=== PATIENT | female | born 1945 | race Asian ===

== ENCOUNTER 2016-08-18 08:46 | Outpatient (CLI) | payer MEDICARE ==
--- NOTE | 2016-08-21 16:15 | Mammography Report ---
DIGITAL SCREENING MAMMOGRAM: 08/18/2016 CLINICAL INDICATION: A 71-year-old nulliparous patient with history of benign right breast biopsy, fo r screening. COMPARISON: 06/2013, 05/2012, 03/2011, 01/2010, 12/2008, 05/2008, 11/2007, 11/2006. TECHNIQUE: Routine CC and MLO projections were obtained of the breasts. FINDINGS: The breasts again demonstrate heterogeneously dense fibroglandular parenchyma bilaterally. Postbiopsy changes in the right upper central breast are stable, with coarse calcifications present. No suspicious masses, clustered microcalcifications, or regions of architectural distortion are iden tified. IMPRESSION: BENIGN FINDINGS. RECOMMENDATION: ROUTINE ANNUAL SCREENING UNLESS OTHERWISE CLINICALLY INDICATED. BIRADS CATEGORY 2-BENIGN FINDINGS. STANDARD QUALIFYING STATEMENTS 1. This examination was reviewed with the aid of Computer-Aided Detection (CAD). 2. A negative or benign imaging report should not delay biopsy if clinically suspicious findings are present. Consider surgical consultation if warranted. More than 5% of cancers are not identified by i maging. 3. Dense breasts may obscure an underlying neoplasm. JOB #: [id number] EXT JOB #:[id number]
== END 2016-08-18 08:47 | disposition home or self-care (01) ==
LOC: DI 08:46
PROVIDERS: ATTEND Family Medicine
DX: Z12.31 Encounter for screening mammogram for malignant neoplasm of breast (principal)
CPT/HCPCS: 77067

== ENCOUNTER 2018-03-14 17:24 | Observation (INO) | payer MEDICARE ==
[2018-03-14 17:57] LABS: MEAN CORPUSCULAR HEMOGLOBIN 29.1 pg (27.0-31.0); MEAN CORPUSCULAR HGB CONC 32.5 g/dL (32.0-36.0); MEAN CORPUSCULAR VOLUME 89.7 fL (81.0-99.0); MEAN PLATELET VOLUME 7.7 fL (7.9-10.8); RED BLOOD COUNT 4.46 10^6/uL (4.20-5.40); RED CELL DISTRIBUTION WIDTH 12.7 % (12.0-15.0); WHITE BLOOD COUNT 7.3 x10^3/uL (4.8-10.8)
--- NOTE | 2018-03-14 18:13 | ED Physician Documentation ---
PD HPI ABD PAIN - Stated complaint Stated Complaint: BLOOD IN STOOL/VOM - Chief complaint Chief Complaint: Abd Pain - History obtained from History obtained from: Patient, Family () - History of Present Illness Timing - onset: Today (72-year-old woman with benign past medical history. States her last colonoscopy was about 4 years ago with finding of diverticula. Today she developed nausea and bloody diarrhea. Her stomach feels upset but not painful per se. She has not traveled recently. She has not been on antibiotics recently. No sick contacts recently.) Review of Systems Ten Systems: 10 systems reviewed and negative Constitutional: denies: Fever, Chills GI: reports: Nausea, Diarrhea, Bloody / black stool. denies: Abdominal Pain, Vomiting PD PAST MEDICAL HISTORY - Present Medications Home Medications: Ambulatory Orders Medication Instructions Recorded Confirmed No Known Home Medications 03/14/18 03/14/18 - Allergies Allergies/Adverse Reactions: Allergies Allergy/AdvReac Type Severity Reaction Status Date / Time hydrochlorothiazide Allergy Rash Verified 03/14/18 17:36 PD ED PE NORMAL - Vitals Vital signs reviewed: Yes - General General: Alert and oriented X 3, No acute distress - HEENT HEENT: PERRL, EOMI - Neck Neck: Supple, no meningeal sign, No bony TTP - Cardiac Cardiac: RRR, No murmur - Respiratory Respiratory: No respiratory distress, Clear bilaterally - Abdomen Abdomen: Normal bowel sounds, Soft, Non tender - Back Back: No CVA TTP, No spinal TTP - Derm Derm: No rash - Extremities Extremities: No edema, No calf tenderness / cord - Neuro Neuro: Alert and oriented X 3, Normal speech - Psych Psych: Normal mood, Normal affect Results - Vitals Vitals: Vital Signs - 24 hr 03/14/18 03/14/18 03/14/18 17:33 18:33 20:36 Temperature 36.6 C Heart Rate 100 87 84 Respiratory 18 16 16 Rate Blood Pressure 137/80 H 163/95 H 155/89 H O2 Saturation 100 100 97 Oxygen O2 Source Room air - Labs Labs: Microbiology 03/14/18 19:03 Clostridium difficile (PCR) - Final Stool 03/14/18 19:03 Campylobacter Antigen Assay - Final Stool Laboratory Tests 03/14/18 03/14/18 03/14/18 17:48 17:48 17:48 WBC 7.3 RBC 4.46 Hgb 13.0 Hct 40.0 MCV 89.7 MCH 29.1 MCHC 32.5 RDW 12.7 Plt Count 281 MPV 7.7 L PT INR APTT 26.5 Sodium 139 Potassium 3.4 L Chloride 102 Carbon Dioxide 28 Anion Gap 9.0 BUN 20 Creatinine 0.8 Estimated GFR (MDRD) 71 L Glucose 131 H Calcium 8.7 Total Bilirubin 0.8 AST 27 ALT 21 Alkaline Phosphatase 61 Total Protein 6.6 L Albumin 3.9 Globulin 2.7 Albumin/Globulin Ratio 1.4 Lipase 42 Blood Type Blood Type Recheck Antibody Screen Crossmatch IS Only 03/14/18 03/14/18 03/14/18 17:48 17:48 18:08 WBC RBC Hgb Hct MCV MCH MCHC RDW Plt Count MPV PT 11.7 INR 1.0 APTT Sodium Potassium Chloride Carbon Dioxide Anion Gap BUN Creatinine Estimated GFR (MDRD) Glucose Calcium Total Bilirubin AST ALT Alkaline Phosphatase Total Protein Albumin Globulin Albumin/Globulin Ratio Lipase Blood Type B POSITIVE Blood Type Recheck B POSITIVE Antibody Screen NEGATIVE Crossmatch IS Only 03/14/18 03/14/18 18:08 20:54 WBC RBC Hgb 11.5 L Hct 33.5 L MCV MCH MCHC RDW Plt Count MPV PT INR APTT Sodium Potassium Chloride Carbon Dioxide Anion Gap BUN Creatinine Estimated GFR (MDRD) Glucose Calcium Total Bilirubin AST ALT Alkaline Phosphatase Total Protein Albumin Globulin Albumin/Globulin Ratio Lipase Blood Type Cancelled Blood Type Recheck Antibody Screen Cancelled Crossmatch IS Only See Detail - Rads (name of study) CT A/P Radiology: EMP read contemporaneously (Diverticula without colitis or other abnormality) PD MEDICAL DECISION MAKING - ED course ED course: 72-year-old woman with lower GI bleed today. Most likely colitis based on the history and therefore a CT was done but not showing evidence of same. Repeat H&H after couple of hours showed a not insignificant drop from 13 hemoglobin to 11.5. Case discussed by phone with the surgeon, Dr. Andrea Sidhu who Recommended observation on the hospitalist service for serial H&H's and colonoscopy if needed, call the hospitalist for admission at 9:16 PM. Departure - Departure Disposition: ED Place in Observation Clinical Impression: Lower GI bleed Condition: Stable Discharge Date/Time: 03/14/18 22:00
[2018-03-14 18:23] LABS: ALBUMIN 3.9 g/dL (3.2-5.5); ALBUMIN/GLOBULIN RATIO 1.4 (1.0-2.2); BILIRUBIN,TOTAL 0.8 mg/dL (0.2-1.0); CALCIUM 8.7 mg/dL (8.5-10.3); CREATININE 0.8 mg/dL (0.4-1.0); TOTAL PROTEIN 6.6 g/dL (6.7-8.2)
[2018-03-14 18:39] LABS: PT - PROTHROMBIN TIME 11.7 secs (9.9-12.6)
[2018-03-14] MEDS ORDERED: IOVERSOL 320 100 ML VIAL IVP ONE ×2 (20:03→20:38)
[2018-03-14 21:00] LABS: HGB - HEMOGLOBIN 11.5 g/dL (12.0-16.0)
--- NOTE | 2018-03-14 21:00 | CT Report ---
Reason: IV only, low abd pain and hematochezia Procedure Date: 03/14/2018 Accession Number: [id number] / [id number] Procedure: CT - Abdomen/Pelvis W/ CPT Code: FULL RESULT: EXAM: CT ABDOMEN AND PELVIS EXAM DATE: 03/14/2018 08:36 PM. CLINICAL HISTORY: Low abdomen pain and hematochezia. COMPARISONS: None. TECHNIQUE: Routine helical CT imaging was performed through the abdomen and pelvis. IV contrast: 90 cc of Optiray 320. Enteric contrast: No. Reconstructions: Coronal and sagittal. In accordance with CT protocol optimization, one or more of the following dose reduction techniques were utilized for this exam: automated exposure control, adjustment of mA and/or KV based on patient size, or use of iterative reconstructive technique. FINDINGS: Lung Bases: Unremarkable. Liver: Several subcentimeter low densities noted, likely cysts. Gallbladder/Bile Ducts: Unremarkable. Spleen: Normal. Pancreas: Normal. Adrenal Glands: Normal. Kidneys: 1.7 cm medial left renal cyst, otherwise unremarkable. Peritoneal Cavity/Bowel: Diverticulosis. No free fluid, free air or adenopathy. No masses or acute inflammatory process. The appendix is well visualized and normal. Pelvic Organs: Normal. The bladder and visualized pelvic organs are within normal limits. Vasculature: No aneurysms or other significant abnormality. Bones: Mild S-shaped scoliosis. Multilevel degenerative disk disease. Other: None. IMPRESSION: 1. Diverticulosis without diverticulitis or other acute bowel abnormalities. 2. Mild S-shaped scoliosis with multilevel degenerative disk disease. RADIA
[2018-03-14] MEDS ORDERED: ZOLPIDEM 5 MG TABLET PO PRN (21:41)
[2018-03-14] MEDS ORDERED: ACETAMINOPHEN 325 MG TABLET PO PRN (21:41)
[2018-03-14] MEDS ORDERED: ONDANSETRON 4 MG/2 ML VIAL IVP PRN (21:41)
[2018-03-14] MEDS ORDERED: MORPHINE 2 MG/ML CARPUJECT IVP PRN (21:41)
[2018-03-14] MEDS ORDERED: SODIUM CHLORIDE FLUSH 0.9% 10 ML SYRINGE IVP PRN (21:41)
[2018-03-14] MEDS ORDERED: PROCHLORPERAZINE 10 MG/2 ML VIAL IVP PRN (21:41)
--- NOTE | 2018-03-14 21:53 | HISTORY & PHYSICAL EXAMINATION ---
Chief Complaint - Chief Complaint Chief Complaint: Bright red blood per rectum History of Present Illness - Admitted From Admitted From:: Emergency department - History Obtained From Records Reviewed: Emergency department History obtained from: Patient and Dr. Monte Exam Limitations: None - History of Present Illness HPI Comment/Other: Patient is a very pleasant 72-year-old female of Hebrew origin living in [facility] for the last 4 years who presents with a chief complaint of bright red blood per rectum that she noticed earlier this morning. She had a significant amounts that was enough to color the water of the toilet bowl after a painless bowel movement. This episode repeated a few times throughout the day and this was associated with one episode of emesis without blood. She denies any previous history of GI bleeding and recalls now that her last colonoscopy was probably about 10 years ago, not the 4 years that she originally told the ED physician. She has no known history of colon disease, is not on an anticoagulant, has no known history of hemorrhoids, denies heavy alcohol use, chronic NSAID use, or other risk factors for GI bleeding. There is no known family history of colon cancer. With the exception of the bleeding and the single episode of emesis she feels fine. She denies any lightheadedness, syncope, chest pain, shortness of breath, or other sequelae of bleeding. She denies any abdominal pain. She has had decreased oral intake today and has been feeling more thirsty for the last several hours. In the emergency room she did have 2 sets of hemoglobin and hematocrit with the second set showing about a 1 point drop in her hemoglobin. General surgery was notified about this and they did recommend keeping the patient overnight with serial hemoglobin and hematocrit and depending on how she does overnight they may take her for a colonoscopy tomorrow morning. The hospitalist service was requested to admit the patient. History - Past Medical History Cardiovascular: reports: Hypertension (She states that years ago she used to be on medications for blood pressure but she has not been on blood pressure me dications for a few years now) Respiratory: reports: None Neuro: reports: None Endocrine/Autoimmune: reports: None GI: reports: GERD LAYOUT MAN: reports: None : reports: None HEENT: reports: None Psych: reports: None Musculoskeletal: reports: None Derm: reports: None MRSA Hx?: No - Past Surgical History HEENT: reports: Tonsil/Adenoidectomy - Family & Social History Family History: Father: BEL Living arrangement: At home Living Situation: With spouse/s.o. Social History Notes: Patient is originally from [place] having her [place] 40 years ago. They used to live in the [facility] but have been living on the [place] for the last 10 years since her retired. 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 - Substance History Use: Uses substance without health or social issues: NONE - POLST Patient has POLST: No POLST Status: Full Code Meds/Allgy - Home Medications Home Medications: Ambulatory Orders Medication Instructions Recorded Confirmed No Known Home Medications 03/14/18 03/14/18 - Allergies Allergies/Adverse Reactions: Allergies Allergy/AdvReac Type Severity Reaction Status Date / Time hydrochlorothiazide Allergy Rash Verified 03/14/18 17:36 Review of Systems - Constitutional Constitutional: denies: Fatigue, Weakness - Cardiovascular Cariovascular: denies: Irregular heart rate, Chest pain - Respiratory Respiratory: denies: SOB at rest, SOB with exertion - Gastrointestinal Gastrointestinal: reports: Change in bowel habits, Rectal bleeding, Nausea, Vomiting. denies: Abdominal pain, Constipation, Diarrhea, Black stools, Bloody stools, Bile emesis, Coffee grounds emesis, Reflux/heartburn - All Other Systems All Other Systems: reports: Reviewed and negative Prior Level of Functionality: Fully independent Exam - Vital Signs Reviewed Vital Signs: Yes Vital Signs: Vital Signs x48h Temp Pulse Resp BP Pulse Ox 03/14/18 20:36 84 16 155/89 H 97 03/14/18 18:33 87 16 163/95 H 100 03/14/18 17:33 36.6 C 100 18 137/80 H 100 - Physical Exam General Appearance: positive: No acute distress Eyes Bilateral: positive: Normal inspection ENT: positive: ENT inspection nml Neck: positive: Nml inspection Respiratory: positive: Chest non-tender Cardiovascular: positive: Regular rate & rhythm, No murmur, No gallop, Irregularly irregular Abdomen: positive: Non-tender, No organomegaly, Nml bowel sounds, No distention Skin: positive: Color nml, Warm. negative: Pallor Extremities: positive: Non-tender, Nml appearance, No pedal edema Neurologic/Psychiatric: positive: Oriented x3, CN's nml (2-12), Motor nml, Sensation nml Conclusion/Plan - Problem List (1) Lower GI bleed Conclusion/Plan: Patient is having an acute lower GI bleed with some changes to her hemoglobin and hematocrits but otherwise no changes to hemodynamics. Patient will be placed in observation overnight with every 6 hemoglobin and hematocrit and depending on the results of this as well as her overall clinical progression, she may need a colonoscopy tomorrow morning. She will be kept n.p.o. at midnight and general surgery will see her in the morning. - Lab Results Lab results reviewed: Yes Fish Bones: 03/14/18 20:54 03/14/18 17:48 - Diagnostic Imaging Results Diagnostic Imaging Results: positive: Final report reviewed Core Measures - Anticipated LOS I expect patient to be DC'd or transferred within 96 hours.: Yes - DVT/VTE - Prophylaxis VTE/DVT Device ordered at admit?: Yes
[2018-03-14 22:01] LABS: HGB - HEMOGLOBIN 12.4 g/dL (12.0-16.0)
[2018-03-14] MEDS: SODIUM CHLORIDE 0.9% 1,000 ML IV SCH (23:40)
[2018-03-14] MEDS: SODIUM CHLORIDE FLUSH 0.9% 10 ML SYRINGE IVP SCH (23:40)
[2018-03-15 04:59] LABS: HGB - HEMOGLOBIN 11.1 g/dL (12.0-16.0)
[2018-03-15 05:03] LABS: CALCIUM 8.6 mg/dL (8.5-10.3); CREATININE 0.7 mg/dL (0.4-1.0)
[2018-03-15] MEDS: PANTOPRAZOLE 40 MG VIAL IVP SCH ×2 (06:38→15:41)
[2018-03-15] MEDS: SODIUM CHLORIDE FLUSH 0.9% 10 ML SYRINGE IVP SCH ×2 (07:26→15:51)
[2018-03-15] MEDS: POLYETHYLENE GLYCOL 3350 17 GM PACKET PO SCH (07:29)
--- NOTE | 2018-03-15 07:44 | CONSULTATION NOTE ---
Referring Provider Name of Referring Provider:: Dr. Garcia Consult Date: 03/15/18 Chief Complaint - Chief Complaint Chief Complaint: rectal bleeding History of Present Illness - Admitted From Admitted From:: ER - History Obtained From Records Reviewed: yes History obtained from: pt Exam Limitations: none - History of Present Illness HPI Comment/Other: 72 yo female in her usual state of health until yesterday morning when she developed what she described as several episodes of bloody diarrhea, followed by BRBPR, a total of 4 large bloody stools associated with one episode of nonbloody nausea and vomiting, but no abd pain, fever, chills, melena, hematochezia, previous similar episodes, unusual oral intake, others in household with similar sx. No dizziness or syncope. No hx PUD, heartburn, dysphagia, recent unexplained wt loss. Only prior colonoscopy was 10 yrs ago reportedly showing diverticulosis. Normally she moves her bowels daily. She reports a FH colon cancer in her mother who was diagnosed at age 96 yrs. Evaluation in the ER included an abd/pelvic CT showing diverticulosis coli and no other significant abnormalities. Since admission last night her vital signs have been stable and she has passed on small blood clot per rectum per nursing. No tobacco, less than one alcoholic beverage per day, no rec drugs. History - Past Medical History Cardiovascular: reports: Hypertension Respiratory: reports: None Neuro: reports: None Endocrine/Autoimmune: reports: None WELL DIGGER: reports: None : reports: None HEENT: reports: None Psych: reports: None Musculoskeletal: reports: None Derm: reports: None MRSA Hx?: No - Past Surgical History HEENT: reports: Tonsil/Adenoidectomy - Family & Social History Family History: Mother: Cancer (colon cancer age 96), Father: CAD Living arrangement: At home Living Situation: With spouse/s.o. Social History Notes: Patient is originally from [facility] having her Malaysian 40 years ago. They used to live in the [facility] but have been living on the [place] for the last 10 years since her retired. 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 - Substance History Use: Uses substance without health or social issues: NONE - POLST Patient has POLST: No POLST Status: Full Code Meds/Allgy - Home Medications Home Medications: Ambulatory Orders Medication Instructions Recorded Confirmed No Known Home Medications 03/14/18 03/14/18 - Allergies Allergies/Adverse Reactions: Allergies Allergy/AdvReac Type Severity Reaction Status Date / Time hydrochlorothiazide Allergy Rash Verified 03/14/18 17:36 Review of Systems - Gastrointestinal Gastrointestinal: reports: Diarrhea, Change in bowel habits, Rectal bleeding, Bloody stools, Nausea, Vomiting, Poor appetite. denies: Abdominal pain, Constipation, Black stools, Mello blood emesis, Coffee grounds emesis, Reflux/heartburn - Hematologic/Lymphatic Hematologic/Lymphatic: denies: Anemia, Bruising, Blood clots, Bleeding tendencies - All Other Systems All Other Systems: reports: Reviewed and negative Exam - Vital Signs Reviewed Vital Signs: Yes Vital Signs: Vital Signs x48h Temp Pulse Resp BP Pulse Ox 03/15/18 07:33 36.5 C 80 16 152/82 H 98 03/15/18 05:25 36.7 C 76 16 141/83 H 98 - Physical Exam General Appearance: positive: No acute distress, Alert Eyes Bilateral: positive: Normal inspection ENT: positive: ENT inspection nml, Pharynx nml, No signs of dehydration Neck: positive: Nml inspection, Thyroid nml, No JVD, Trachea midline. negative: Thyromegaly, Lymphadenopathy (R), Lymphadenopathy (L) Respiratory: positive: Chest non-tender, No respiratory distress, Breath sounds nml. negative: Wheezes, Rales, Rhonchi Cardiovascular: positive: Regular rate & rhythm, No murmur, No gallop Abdomen: positive: Non-tender, No organomegaly, No distention. negative: Guarding, Rebound, Hepatomegaly, Splenomegaly, Mass Skin: positive: Color nml. negative: No rash, Warm, Dry, Cyanosis Extremities: positive: Non-tender. negative: Pedal edema, Calf tenderness Neurologic/Psychiatric: positive: Oriented x3 Conclusion/Plan - Diagnosis Diagnosis: lower gi bleeding; clinically resolving; possible component of diarrhea; ddx includes tics, angiodysplasia, acute colitis, IBD, doubt CRC; doubt UGI source. Hemodynamically stable at present. - Plan Plan: Continue observation today; clear liquid diet and bowel prep for colonoscopy tomorrow. PAR conference with pt and consent obtained. Dr. Arita will perform the procedure. - Lab Results Lab results reviewed: Yes Fish Bones: 03/15/18 04:10 03/15/18 04:10 Other Lab Results: Stool for C. diff and campylobacter neg. - Diagnostic Imaging Results Diagnostic Imaging Results: positive: Final report reviewed
[2018-03-15 10:04] LABS: HGB - HEMOGLOBIN 11.2 g/dL (12.0-16.0)
--- NOTE | 2018-03-15 10:56 | PROVIDER PROGRESS NOTE ---
Subjective - Prog Note Date Prog Note Date: 03/15/18 - Subjective Pt reports feeling: No change Subjective: pt report she still has small bright red blood stool at today morning. She denies abdominal pain, nausea, vomiting, or diarrhea. She also denies lig htheaded, chest pain, shortness of breath. pt was seen by Dr. Andrea Sidhu, and will schedule to have colonoscopy on tomorrow. Current Medications - Current Medications Current Medications: Active Medications Acetaminophen (Tylenol) 650 mg PO Q4HR PRN PRN Reason: Pain 1 to 4 Sodium Chloride (Normal Saline 0.9%) 1,000 mls @ 75 mls/hr IV .[id number] [facility] Last Admin: 03/14/18 23:40 Dose: 75 mls/hr Morphine Sulfate (Morphine (Carpuject)) 2 mg IVP Q2HR PRN PRN Reason: Pain 8 to 10 Ondansetron HCl (Zofran Inj) 4 mg IVP Q6HR PRN PRN Reason: Nausea / Vomiting Pantoprazole Sodium (Protonix) 40 mg IVP BIDAC [facility] Last Admin: 03/15/18 06:38 Dose: 40 mg Polyethylene Glycol (Miralax) 17 gm PO DAILY [facility] Last Admin: 03/15/18 07:29 Dose: Not Given Prochlorperazine Edisylate (Compazine Inj) 10 mg IVP Q6HR PRN PRN Reason: Nausea / Vomiting Sodium Chloride (Normal Saline Flush 0.9%) 10 ml IVP PRN PRN PRN Reason: NEEDED PER PROVIDER ORDERS Last Admin: 03/15/18 06:37 Dose: 10 ml Sodium Chloride (Normal Saline Flush 0.9%) 10 ml IVP 0100,0900,1700 [facility] Last Admin: 03/15/18 07:26 Dose: Not Given Sodium Sulfate/Potass Sulf/Mag Sulf (Suprep Bowel Prep Kit) 177 ml PO 1800,0500 [facility] Stop: 03/16/18 05:01 Zolpidem Tartrate (Ambien) 5 mg PO QPM PRN PRN Reason: Insomnia Aspirin 81 mg PO DAILY 03/15/18 Garlic 500 mg PO DAILY 03/15/18 Multivitamin [Theragran] 1 each PO DAILY 03/15/18 Objective - Vital Signs/Intake & Output Reviewed Vital Signs: Yes Vital Signs: Vital Signs x48h Temp Pulse Resp BP Pulse Ox 03/15/18 07:33 36.5 C 80 16 152/82 H 98 03/15/18 05:25 36.7 C 76 16 141/83 H 98 Intake & Output: Intake & Output 03/12/18 03/13/18 03/14/18 03/15/18 23:59 23:59 23:59 23:59 Intake Total 360 Balance 360 - Objective General Appearance: positive: No acute distress, Alert. negative: Lethargic Eyes Bilateral: positive: Normal inspection, PERRL, No lid inflammation, Conjunctivae nml ENT: positive: ENT inspection nml, Pharynx nml, No signs of dehydration. negative: Purulent nasal drainage, Pharyngeal erythema, Oral lesions, Dry mucous membranes Neck: positive: Nml inspection, Thyroid nml, No JVD, Trachea midline. negative: Thyromegaly, Lymphadenopathy (R), Lymphadenopathy (L), Stiff neck, Swel ling/bruising, Tracheal deviation Respiratory: positive: Chest non-tender, No respiratory distress, Breath sounds nml. negative: Wheezes, Rales, Rhonchi Cardiovascular: positive: Regular rate & rhythm, No murmur, No gallop. negative: Irregularly irregular, Extrasystoles, Tachycardia, Bradycardia, JVD present, Systolic murmur, Diastolic murmur Peripheral Pulses: 2+ Radial (R), 2+ Radial (L), 2+ Dorsalis pedis (R), 2+ Ian salis pedis (L) Abdomen: positive: Non-tender, No organomegaly, Nml bowel sounds, No distention. negative: Tenderness, Guarding, Rebound Back: positive: Nml inspection. negative: CVA tenderness (R), CVA tenderness (L) Skin: positive: Color nml, No rash, Warm, Dry. negative: Cyanosis, Diaphoresis, Pallor Extremities: positive: Non-tender, Full ROM, Nml appearance. negative: Calf tenderness, Joint swelling, Bozena's sign/cords Neurologic/Psychiatric: positive: Oriented x3, Motor nml, Sensation nml, Mood/affect nml. negative: Weakness, Sensory loss, Facial droop, Slurred/abnml speech, Depressed mood/affect - Lab Results Fish Bones: 03/15/18 09:43 03/15/18 04:10 Other Labs: Lab Results x24hrs 03/15/18 03/15/18 03/15/18 Range/Units 09:43 04:10 04:10 WBC (4.8-10.8) x10^3/uL RBC (4.20-5.40) 10^6/uL Hgb 11.2 L 11.1 L (12.0-16.0) g/dL Hct 32.7 L 33.4 L (37.0-47.0) % MCV (81.0-99.0) fL MCH (27.0-31.0) pg MCHC (32.0-36.0) g/dL RDW (12.0-15.0) % Plt Count (130-450) 10^3/uL MPV (7.9-10.8) fL PT (9.9-12.6) secs INR (0.8-1.2) APTT (24.9-33.3) secs Sodium 142 (135-145) mmol/L Potassium 3.7 (3.5-5.0) mmol/L Chloride 103 (101-111) mmol/L Carbon Dioxide 28 (21-32) mmol/L Anion Gap 11.0 (6-13) BUN 18 (6-20) mg/dL Creatinine 0.7 (0.4-1.0) mg/dL Estimated GFR (MDRD) 82 L (>89) Glucose 105 H (70-100) mg/dL Calcium 8.6 (8.5-10.3) mg/dL Total Bilirubin (0.2-1.0) mg/dL AST (10-42) IU/L ALT (10-60) IU/L Alkaline Phosphatase (42-121) IU/L Total Protein (6.7-8.2) g/dL Albumin (3.2-5.5) g/dL Globulin (2.1-4.2) g/dL Albumin/Globulin Ratio (1.0-2.2) Lipase (22-51) U/L Blood Type Blood Type Recheck Antibody Screen Crossmatch IS Only 03/14/18 03/14/18 03/14/18 Range/Units 21:58 20:54 18:08 WBC (4.8-10.8) x10^3/uL RBC (4.20-5.40) 10^6/uL Hgb 12.4 11.5 L (12.0-16.0) g/dL Hct 37.5 33.5 L (37.0-47.0) % MCV (81.0-99.0) fL MCH (27.0-31.0) pg MCHC (32.0-36.0) g/dL RDW (12.0-15.0) % Plt Count (130-450) 10^3/uL MPV (7.9-10.8) fL PT (9.9-12.6) secs INR (0.8-1.2) APTT (24.9-33.3) secs Sodium (135-145) mmol/L Potassium (3.5-5.0) mmol/L Chloride (101-111) mmol/L Carbon Dioxide (21-32) mmol/L Anion Gap (6-13) BUN (6-20) mg/dL Creatinine (0.4-1.0) mg/dL Estimated GFR (MDRD) (>89) Glucose (70-100) mg/dL Calcium (8.5-10.3) mg/dL Total Bilirubin (0.2-1.0) mg/dL AST (10-42) IU/L ALT (10-60) IU/L Alkaline Phosphatase (42-121) IU/L Total Protein (6.7-8.2) g/dL Albumin (3.2-5.5) g/dL Globulin (2.1-4.2) g/dL Albumin/Globulin Ratio (1.0-2.2) Lipase (22-51) U/L Blood Type Cancelled Blood Type Recheck Antibody Screen Cancelled Crossmatch IS Only See Detail 03/14/18 03/14/18 03/14/18 Range/Units 18:08 17:48 17:48 WBC (4.8-10.8) x10^3/uL RBC (4.20-5.40) 10^6/uL Hgb (12.0-16.0) g/dL Hct (37.0-47.0) % MCV (81.0-99.0) fL MCH (27.0-31.0) pg MCHC (32.0-36.0) g/dL RDW (12.0-15.0) % Plt Count (130-450) 10^3/uL MPV (7.9-10.8) fL PT 11.7 (9.9-12.6) secs INR 1.0 (0.8-1.2) APTT (24.9-33.3) secs Sodium (135-145) mmol/L Potassium (3.5-5.0) mmol/L Chloride (101-111) mmol/L Carbon Dioxide (21-32) mmol/L Anion Gap (6-13) BUN (6-20) mg/dL Creatinine (0.4-1.0) mg/dL Estimated GFR (MDRD) (>89) Glucose (70-100) mg/dL Calcium (8.5-10.3) mg/dL Total Bilirubin (0.2-1.0) mg/dL AST (10-42) IU/L ALT (10-60) IU/L Alkaline Phosphatase (42-121) IU/L Total Protein (6.7-8.2) g/dL Albumin (3.2-5.5) g/dL Globulin (2.1-4.2) g/dL Albumin/Globulin Ratio (1.0-2.2) Lipase (22-51) U/L Blood Type B POSITIVE Blood Type Recheck B POSITIVE Antibody Screen NEGATIVE Crossmatch IS Only 03/14/18 03/14/18 03/14/18 Range/Units 17:48 17:48 17:48 WBC 7.3 (4.8-10.8) x10^3/uL RBC 4.46 (4.20-5.40) 10^6/uL Hgb 13.0 (12.0-16.0) g/dL Hct 40.0 (37.0-47.0) % MCV 89.7 (81.0-99.0) fL MCH 29.1 (27.0-31.0) pg MCHC 32.5 (32.0-36.0) g/dL RDW 12.7 (12.0-15.0) % Plt Count 281 (130-450) 10^3/uL MPV 7.7 L (7.9-10.8) fL PT (9.9-12.6) secs INR (0.8-1.2) APTT 26.5 (24.9-33.3) secs Sodium 139 (135-145) mmol/L Potassium 3.4 L (3.5-5.0) mmol/L Chloride 102 (101-111) mmol/L Carbon Dioxide 28 (21-32) mmol/L Anion Gap 9.0 (6-13) BUN 20 (6-20) mg/dL Creatinine 0.8 (0.4-1.0) mg/dL Estimated GFR (MDRD) 71 L (>89) Glucose 131 H (70-100) mg/dL Calcium 8.7 (8.5-10.3) mg/dL Total Bilirubin 0.8 (0.2-1.0) mg/dL AST 27 (10-42) IU/L ALT 21 (10-60) IU/L Alkaline Phosphatase 61 (42-121) IU/L Total Protein 6.6 L (6.7-8.2) g/dL Albumin 3.9 (3.2-5.5) g/dL Globulin 2.7 (2.1-4.2) g/dL Albumin/Globulin Ratio 1.4 (1.0-2.2) Lipase 42 (22-51) U/L Blood Type Blood Type Recheck Antibody Screen Crossmatch IS Only ABX Reporting Has patient been on IV antibiotics over the past 48 hours?: No Sepsis Event Note (H) - Evaluation Current Stage of Sepsis: Ruled out Assessment/Plan - Problem List (1) Lower GI bleed Impression: pt still has small lower GI bleed, check H&H closely monitor consult with GI surgeon, bowel preparing, pt will have colonoscopy on tomorrow continue Protonix IV vital monitor
[2018-03-15] MEDS: SODIUM CHLORIDE 0.9% 1,000 ML IV SCH ×2 (11:44→23:49)
[2018-03-15] MEDS: SODIUM/POTASSIUM/MAG SULFATES 354 ML PREP KIT PO SCH (17:53)
[2018-03-15 19:04] LABS: HGB - HEMOGLOBIN 11.7 g/dL (12.0-16.0)
--- NOTE | 2018-03-15 22:51 | PROVIDER PROGRESS NOTE ---
Subjective - General Admit Date: 03/14/18 Procedure Date: 03/16/18 Post Op Days: 1 Procedure Performed: Not yet - Review of Systems Wound/Incisions: positive: Other (None.) General: positive: No symptoms HEENT: positive: No symptoms Pulmonary: positive: No symptoms Cardiovascular: positive: No symptoms Gastrointestinal: positive: No symptoms Genitourinary: positive: No symptoms Musculoskeletal: positive: No symptoms Skin: positive: No symptoms Psychiatric: positive: No symptoms All Other Systems: positive: Reviewed and negative Objective - Patient Data Reviewed Vital Signs: Yes Vital Signs: Vital Signs x48h Temp Pulse Resp BP Pulse Ox 03/15/18 20:11 36.6 C 82 18 142/83 H 99 03/15/18 16:00 36.6 C 78 18 142/73 H 99 Weight: Weight 03/13/18 03/14/18 03/15/18 23:59 23:59 23:59 Weight (kg) 46.5 kg Intake & Output: Intake and Output Totals x24h 03/13/18 03/14/18 03/15/18 23:59 23:59 23:59 Intake Total 3474 Output Total 800 Balance 2674 - Lab Results Lab Results: 03/15/18 18:35 03/15/18 04:10 Other Lab Results: Lab Results x24hrs 03/15/18 03/15/18 03/15/18 Range/Units 18:35 09:43 04:10 Hgb 11.7 L 11.2 L (12.0-16.0) g/dL Hct 35.5 L 32.7 L (37.0-47.0) % Sodium 142 (135-145) mmol/L Potassium 3.7 (3.5-5.0) mmol/L Chloride 103 (101-111) mmol/L Carbon Dioxide 28 (21-32) mmol/L Anion Gap 11.0 (6-13) BUN 18 (6-20) mg/dL Creatinine 0.7 (0.4-1.0) mg/dL Estimated GFR (MDRD) 82 L (>89) Glucose 105 H (70-100) mg/dL Calcium 8.6 (8.5-10.3) mg/dL 03/15/18 Range/Units 04:10 Hgb 11.1 L (12.0-16.0) g/dL Hct 33.4 L (37.0-47.0) % Sodium (135-145) mmol/L Potassium (3.5-5.0) mmol/L Chloride (101-111) mmol/L Carbon Dioxide (21-32) mmol/L Anion Gap (6-13) BUN (6-20) mg/dL Creatinine (0.4-1.0) mg/dL Estimated GFR (MDRD) (>89) Glucose (70-100) mg/dL Calcium (8.5-10.3) mg/dL - Current Medications Current Medications: Current Medications Generic Name Dose Route Start Last Admin Trade Name Freq PRN Reason Stop Dose Admin Sodium Chloride 1,000 mls @ 75 mls/hr 03/14/18 22:00 03/15/18 11:44 Normal Saline 0.9% IV 75 mls/hr .[id number] [facility] Administration Pantoprazole Sodium 40 mg 03/15/18 07:00 03/15/18 15:41 Protonix IVP 40 mg BIDAC [facility] Administration Polyethylene Glycol 17 gm 03/15/18 09:00 03/15/18 07:29 Miralax PO Not Given DAILY [facility] Sodium Chloride 10 ml 03/14/18 21:41 03/15/18 06:37 Normal Saline Flush 0.9% IVP 10 ml PRN PRN Administration NEEDED PER PROVIDER ORDERS Sodium Chloride 10 ml 03/15/18 01:00 03/15/18 15:51 Normal Saline Flush 0.9% IVP Not Given 0100,0900,1700 [facility] Sodium Sulfate/Potass Sulf/Mag Sulf 177 ml 03/15/18 18:00 03/15/18 17:53 Suprep Bowel Prep Kit PO 03/16/18 05:01 177 ml 1800,0500 [facility] Administration - Physical Exam Wound/Incisions: positive: Other (None.) General Appearance: positive: No acute distress, Other (Pale.) Eyes Bilateral: positive: No lid inflammation, Conjunctivae nml, No scleral icterus ENT: positive: No signs of dehydration Neck: positive: Trachea midline Respiratory: positive: Chest non-tender, No respiratory distress, Breath sounds nml Cardiovascular: positive: Regular rate & rhythm Abdomen: positive: Non-tender, No organomegaly, Nml bowel sounds, No distention Skin: positive: Pallor Extremities: positive: Non-tender, Nml appearance Neurologic/Psychiatric: positive: Oriented x3, Motor nml, Sensation nml, Mood/affect nml Impression/Plan - Problem List Problem List: Dr. Andrea Sidhu completed a consultation on this very pleasant patient and asked that I perform her colonoscopy tomorrow as I am the on-call physician. Of course I agreed. I spoke with the patient about this today and explained that Dr. Sidhu would not be performing her colonoscopy but rather I would. She states that he and her share the same first name. She denies any current symptomatology. The indications, procedure, alternatives including no procedure whatsoever, and possible complications including but not limited to perforation requiring operative repair, bleeding, and even were fully explained to the patient all questions were answered. I again obtained verbal consent. Dr. Andrea Sidhu had obtained both verbal and written consent to include both himself and myself. The patient will complete her mechanical prep of her colon this evening. She should be n.p.o. for several hours prior to the procedure. I have asked her to let us know if there is any way we can make her stay here at [facility] more comfortable to please let us know and she stated that she would. 30 minutes of [id number] time was spent with the patient, almost all in explanation and discussion, coordination of their care and completion of the requisite paperwork
[2018-03-16] MEDS: SODIUM CHLORIDE FLUSH 0.9% 10 ML SYRINGE IVP SCH ×2 (01:38→06:50)
[2018-03-16] MEDS: SODIUM/POTASSIUM/MAG SULFATES 354 ML PREP KIT PO SCH (05:04)
[2018-03-16] MEDS: PANTOPRAZOLE 40 MG VIAL IVP SCH (06:50)
[2018-03-16] MEDS: POLYETHYLENE GLYCOL 3350 17 GM PACKET PO SCH (07:27)
[2018-03-16 08:03] LABS: BASOPHILS # (AUTO) 0.1 10^3/uL (0.0-0.1); BASOPHILS % (AUTO) 1.1 %; EOSINOPHILS # (AUTO) 0.1 10^3/uL (0.0-0.7); EOSINOPHILS % (AUTO) 2.4 %; HGB - HEMOGLOBIN 10.8 g/dL (12.0-16.0); LYMPHOCYTES # (AUTO) 1.2 10^3/uL (1.5-3.5); LYMPHOCYTES % (AUTO) 26.8 %; MEAN CORPUSCULAR HEMOGLOBIN 30.1 pg (27.0-31.0); MEAN CORPUSCULAR HGB CONC 34.3 g/dL (32.0-36.0); MEAN CORPUSCULAR VOLUME 87.8 fL (81.0-99.0); MEAN PLATELET VOLUME 7.3 fL (7.9-10.8); MONOCYTES # (AUTO) 0.3 10^3/uL (0.0-1.0); MONOCYTES % (AUTO) 6.9 %; NEUTROPHILS # (AUTO) 2.8 10^3/uL (1.5-6.6); NEUTROPHILS % (AUTO) 62.8 %; PLT - PLATELET COUNT 233 10^3/uL (130-450); RED BLOOD COUNT 3.58 10^6/uL (4.20-5.40); RED CELL DISTRIBUTION WIDTH 12.8 % (12.0-15.0); WHITE BLOOD COUNT 4.5 x10^3/uL (4.8-10.8)
[2018-03-16 08:10] LABS: CALCIUM 8.5 mg/dL (8.5-10.3); CREATININE 0.7 mg/dL (0.4-1.0)
--- NOTE | 2018-03-16 08:42 | ANESTHESIA ---
Pre-Anesthesia VS, & Labs - Diagnosis Diagnosis lower gi bleeding; clinically resolving; possible component of diarrhea; ddx includes tics, angiodysplasia, acute colitis, IBD, doubt CRC; doubt UGI source. Hemodynamically stable at present. - Procedure colonoscopy Vital Signs: Temp Pulse Resp BP Pulse Ox 36.3 C L 76 14 153/91 H 100 03/16/18 08:25 03/16/18 08:25 03/16/18 08:25 03/16/18 08:25 03/16/18 08:25 Height 5 ft 3 in Weight (kg) 46.5 kg Body Mass Index 18.1 - NPO >8 hours - Is Patient ?: Not Applicable - Lab Results Current Lab Results: Laboratory Tests 03/16/18 07:57: Sodium 140, Potassium 3.4 L, Chloride 108, Carbon Dioxide 24, Anion Gap 8.0, BUN 10, Creatinine 0.7, Estimated GFR (MDRD) 82 L, Glucose 105 H, Calcium 8.5 03/16/18 07:57: WBC 4.5 L, RBC 3.58 L, Hgb 10.8 L, Hct 31.5 L, MCV 87.8, MCH 30.1, MCHC 34.3, RDW 12.8, Plt Count 233, MPV 7.3 L, Neut # (Auto) 2.8, Lymph # (Auto) 1.2 L, [place] # (Auto) 0.3, Eos # (Auto) 0.1, Baso # (Auto) 0.1, Absolute Nucleated RBC 0.00, Nucleated RBC % 0.0 03/15/18 18:35: Hgb 11.7 L, Hct 35.5 L 03/15/18 09:43: Hgb 11.2 L, Hct 32.7 L 03/15/18 04:10: Sodium 142, Potassium 3.7, Chloride 103, Carbon Dioxide 28, Anion Gap 11.0, BUN 18, Creatinine 0.7, Estimated GFR (MDRD) 82 L, Glucose 105 H , Calcium 8.6 03/15/18 04:10: Hgb 11.1 L, Hct 33.4 L 03/14/18 21:58: Hgb 12.4, Hct 37.5 03/14/18 20:54: Hgb 11.5 L, Hct 33.5 L 03/14/18 18:08: Blood Type Cancelled, Antibody Screen Cancelled, Crossmatch IS Only See Detail 03/14/18 18:08: Blood Type B POSITIVE, Antibody Screen NEGATIVE 03/14/18 17:48: PT 11.7, INR 1.0 03/14/18 17:48: Blood Type Recheck B POSITIVE 03/14/18 17:48: Sodium 139, Potassium 3.4 L, Chloride 102, Carbon Dioxide 28, Anion Gap 9.0, BUN 20, Creatinine 0.8, Estimated GFR (MDRD) 71 L, Glucose 131 H, Calcium 8.7, Total Bilirubin 0.8, AST 27, ALT 21, Alkaline Phosphatase 61, Total Protein 6.6 L, Albumin 3.9, Globulin 2.7, Albumin/Globulin Ratio 1.4, Lipase 42 03/14/18 17:48: APTT 26.5 03/14/18 17:48: WBC 7.3, RBC 4.46, Hgb 13.0, Hct 40.0, MCV 89.7, MCH 29.1, MCHC 32.5, RDW 12.7, Plt Count 281, MPV 7.7 L Lab results reviewed: Yes Fish Bones: 03/16/18 07:57 03/16/18 07:57 Home Medications and Allergies Home Medications: Ambulatory Orders Aspirin 81 mg PO DAILY 03/15/18 Garlic 500 mg PO DAILY 03/15/18 Multivitamin [Theragran] 1 each PO DAILY 03/15/18 Active Medications Acetaminophen (Tylenol) 650 mg PO Q4HR PRN PRN Reason: Pain 1 to 4 Sodium Chloride (Normal Saline 0.9%) 1,000 mls @ 75 mls/hr IV .[id number] [facility] Last Admin: 03/15/18 23:49 Dose: 75 mls/hr Morphine Sulfate (Morphine (Carpuject)) 2 mg IVP Q2HR PRN PRN Reason: Pain 8 to 10 Ondansetron HCl (Zofran Inj) 4 mg IVP Q6HR PRN PRN Reason: Nausea / Vomiting Pantoprazole Sodium (Protonix) 40 mg IVP BIDAC [facility] Last Admin: 03/16/18 06:50 Dose: 40 mg Polyethylene Glycol (Miralax) 17 gm PO DAILY [facility] Last Admin: 03/16/18 07:27 Dose: Not Given Prochlorperazine Edisylate (Compazine Inj) 10 mg IVP Q6HR PRN PRN Reason: Nausea / Vomiting Sodium Chloride (Normal Saline Flush 0.9%) 10 ml IVP PRN PRN PRN Reason: NEEDED PER PROVIDER ORDERS Last Admin: 03/15/18 06:37 Dose: 10 ml Sodium Chloride (Normal Saline Flush 0.9%) 10 ml IVP 0100,0900,1700 [facility] Last Admin: 03/16/18 06:50 Dose: 10 ml Zolpidem Tartrate (Ambien) 5 mg PO QPM PRN PRN Reason: Insomnia Aspirin 81 mg PO DAILY 03/15/18 Garlic 500 mg PO DAILY 03/15/18 Multivitamin [Theragran] 1 each PO DAILY 03/15/18 Allergies/Adverse Reactions: Allergies Allergy/AdvReac Type Severity Reaction Status Date / Time hydrochlorothiazide Allergy Rash Verified 03/14/18 17:36 Anes History & Medical History - Anesthetic History Family history of Anesthesia Complications: Denies Family history of Malignant Hyperthermia: Denies - Medical History Cardiovascular: reports: Hypertension Pulmonary: reports: None Gastrointestinal: reports: GERD Urinary: reports: None Neuro: reports: None Musculoskeletal: reports: None Endocrine/Autoimmune: reports: None Blood Disorders: reports: None Skin: reports: None Smoking Status: Never smoker - Surgical History Eyes Ears Nose Throat (EENT): Tonsil/Adenoidectomy Exam General: Alert, Oriented x3, Cooperative, No acute distress Dental: WNL Mouth Openin Fingerbreadth Neck Mobility: Normal Mallampati classification: I Thyromental Distance: greater than 6 cm Respiratory: Lungs clear, Normal breath sounds, No respiratory distress, No accessory muscle use Cardiovascular: Regular rate, Normal S1, Normal S2, No murmurs Mental/Cognitive Status: Alert/Oriented X3, Normal for patient Plan Anesthesia Type: MAC Consent for Procedure(s) Verified and Reviewed: No Code Status: Attempt Resuscitation ASA classification: 2-Mild systemic disease Is this case an emergency?: No
[2018-03-16] MEDS ORDERED: SODIUM CHLORIDE 0.9% 1,000 ML IV ONE (09:17)
[2018-03-16] MEDS ORDERED: LACTATED RINGERS 1,000 ML IV ONE (09:55)
[2018-03-16] MEDS ORDERED: PROPOFOL 200 MG/20 ML VIAL IVP ONE (10:06)
[2018-03-16 11:07] VITALS: BP 145/84
--- NOTE | 2018-03-16 12:41 | Discharge Plan ---
Discharge Plan Disposition: 01 Home, Self Care Condition: Poor Diet: Regular Activity Restrictions: Activity as Tolerated Shower Restrictions: No (fall precaution) Instruction Topics: Polyps Colon Rectal, Bleeding Gastrointestinal Additional Instructions or Follow Up instructions: You may followup your PCP in two weeks, may call Dr. Denny Henderson surgery office for biopsy sample result, may followup Dr. Denny Henderson in 6 months. Should your symptoms return or worsen, you may present ER, call 911, or your PCP for help. No Smoking: If you smoke, Please STOP! Call for help. Follow-up with: Deborah Morgan MD [Primary Care Provider] -
--- NOTE | 2018-03-16 12:43 | DISCHARGE SUMMARY ---
Discharge Summary Discharge Date: 03/16/18 Discharging Provider: YIP Primary Care Provider: Dr. Morgan Condition at Discharge: Poor Discharge Disposition: 01 Home, Self Care Discharge Facility Name: home - DIAGNOSES Discharge Diagnoses with Status of Each Condition: pt tolerate the regular diet. pt had normal bowel movement without GI bleed. - ALLERGIES Allergies/Adverse Reactions: Allergies Allergy/AdvReac Type Severity Reaction Status Date / Time hydrochlorothiazide Allergy Rash Verified 03/14/18 17:36 - MEDICATIONS Home Medications: Ambulatory Orders Medication Instructions Recorded Confirmed Aspirin 81 mg PO DAILY 03/15/18 03/15/18 Garlic 500 mg PO DAILY 03/15/18 03/15/18 Multivitamin [Theragran] 1 each PO DAILY 03/15/18 03/15/18 - LABS Result Diagrams: 03/16/18 07:57 03/16/18 07:57 - SEPSIS Current Stage of Sepsis: Ruled out
--- NOTE | 2018-03-16 12:52 | DISCHARGE SUMMARY ---
"Discharge Summary Discharge Date: 03/16/18 Discharging Provider: YIP Primary Care Provider: Dr. Morgan Condition at Discharge: Poor Discharge Disposition: 01 Home, Self Care Discharge Facility Name: home - DIAGNOSES Admission Diagnoses: (1) Lower GI bleed Discharge Diagnoses with Status of Each Condition: (1) Lower GI bleed Pt had EGD which was done by Dr. Henderson, he found pt has multiple diverticulosis and large side polyps. The samples were sent for biopsy. pt had a bowel movement this afternoon after EGD procedure. there is no GI bleed, or melena. pt's HGB is stable. pt request to be d/c today. pt tolerate diet. Surgeon Dr. Henderson released pt for discharge. - HPI History of Present Illness: refer from Dr. Sexton's HPI for pt on 03/14/18 as the following: Patient is a very pleasant 72-year-old female of [place] origin living in [facility] for the last 4 years who presents with a chief complaint of bright red blood per rectum that she noticed earlier this morning. She had a significant amounts that was enough to color the water of the toilet bowl after a painless bowel movement. This episode repeated a few times throughout the day and this was associated with one episode of emesis without blood. She denies any previous history of GI bleeding and recalls now that her last colonoscopy was probably about 10 years ago, not the 4 years that she originally told the ED physician. She has no known history of colon disease, is not on an anticoagulant, has no known history of hemorrhoids, denies heavy alcohol use, chronic NSAID use, or other risk factors for GI bleeding. There is no known family history of colon cancer. With the exception of the bleeding and the single episode of emesis she feels fine. She denies any lightheadedness, syncope, chest pain, shortness of breath, or other sequelae of bleeding. She denies any abdominal pain. She has had decreased oral intake today and has been feeling more thirsty for the last several hours. In the emergency room she did have 2 sets of hemoglobin and hematocrit with the second set showing about a 1 point drop in her hemoglobin. General surgery was notified about this and they did recommend keeping the patient overnight with serial hemoglobin and hematocrit and depending on how she does overnight they may take her for a colonoscopy tomorrow morning. The hospitalist service was requested to admit the patient. - CONSULTS | PROCEDURES Consultations: surgeon Dr. Denny Henderson Procedures: EGD - HOSPITAL COURSE Hospital Course: pt was admitted for rectal bright GI bleed. Pt had EGD which was done by Dr. Henderson, he found pt has multiple diverticulosis and large side polyps. The samples were sent for biopsy. pt had a bowel movement this afternoon after EGD procedure. there is no GI bleed, or melena. pt's HGB is stable. pt request to be d/c today. pt tolerate diet. Surgeon Dr. Henderson released pt for discharge. - ALLERGIES Allergies/Adverse Reactions: Allergies Allergy/AdvReac Type Severity Reaction Status Date / Time hydrochlorothiazide Allergy Rash Verified 03/14/18 17:36 - MEDICATIONS Home Medications: Ambulatory Orders Medication Instructions Recorded Confirmed Aspirin 81 mg PO DAILY 03/15/18 03/15/18 Garlic 500 mg PO DAILY 03/15/18 03/15/18 Multivitamin [Theragran] 1 each PO DAILY 03/15/18 03/15/18 - PHYSICAL EXAM AT DISCHARGE General Appearance: positive: No acute distress, Alert. negative: Lethargic Eyes Bilateral: positive: Normal inspection, PERRL, No lid inflammation, Conjunctivae nml ENT: positive: ENT inspection nml, Pharynx nml, No signs of dehydration. negative: Purulent nasal drainage, Pharyngeal erythema, Oral lesions Neck: positive: Nml inspection, Thyroid nml, No JVD, Trachea midline. negative: Thyromegaly, Lymphadenopathy (R), Lymphadenopathy (L), Stiff neck, Swelling/b ruising, Tracheal deviation Respiratory: positive: Chest non-tender, No respiratory distress, Breath sounds nml. negative: Wheezes, Rales, Rhonchi Cardiovascular: positive: Regular rate & rhythm, No murmur, No gallop. negative: Irregularly irregular, Extrasystoles, Tachycardia, Bradycardia, JVD present, Systolic murmur, Diastolic murmur Peripheral Pulses: positive: 2+ Abdomen: positive: Non-tender, No organomegaly, Nml bowel sounds, No distention. negative: Tenderness, Guarding, Rebound Back: positive: Nml inspection. negative: CVA tenderness (R) Skin: positive: Color nml, No rash, Warm, Dry. negative: Cyanosis, Diaphoresis, Pallor Extremities: positive: Non-tender, Full ROM, Nml appearance. negative: Calf ten derness, Joint swelling, Bozena's sign/cords Neurologic/Psychiatric: positive: Oriented x3, Motor nml, Sensation nml, Mood/affect nml. negative: Weakness, Sensory loss, Facial droop, Slurred/abnml speech, Depressed mood/affect - LABS Result Diagrams: 03/16/18 07:57 03/16/18 07:57 - SEPSIS Current Stage of Sepsis: Ruled out - FOLLOW UP Follow Up: You may followup your PCP in two weeks, may call Dr. Denny Henderson surgery office for biopsy sample result, may followup Dr. Denny Henderson in 6 months. Should your symptoms return or worsen, you may present ER, call 911, or your PCP for help. - TIME SPENT Time Spent in Discharge (Minutes): 50"
== END 2018-03-16 13:05 | disposition home or self-care (01) ==
LOC: ED 17:24 → MS2 21:41
PROVIDERS: ADMIT Family Medicine Sports Medicine; ATTEND Nurse Practitioner Gerontology
PROC: 3E0H8GC Introduction of Other Therapeutic Substance into Lower GI, Via Natural or Artificial Opening Endoscopic (ICD-10-PCS; 2018-03-16)
PROC: 0DBN8ZZ Excision of Sigmoid Colon, Via Natural or Artificial Opening Endoscopic (ICD-10-PCS; principal; 2018-03-16 09:00)
DX: D12.5 Benign neoplasm of sigmoid colon (principal); K64.8 Other hemorrhoids; K57.30 Diverticulosis of large intestine without perforation or abscess without bleeding; I10 Essential (primary) hypertension; Z80.0 Family history of malignant neoplasm of digestive organs; K21.9 Gastro-esophageal reflux disease without esophagitis
CPT/HCPCS: 36415; 45381; 45385; 74177; 80048; 80053; 83690; 85014; 85018; 85025; 85027; 85610; 85730; 86850; 86900; 86901; 86920; 87045; 87046; 87493; 96374; 96376; 99283; A9270; G0378; J7120; Q9967; 99284

== ENCOUNTER 2018-04-09 09:43 | Outpatient (CLI) | payer MEDICARE ==
[2018-04-09 12:59] LABS: BASOPHILS % (AUTO) 0.4 %; EOSINOPHILS % (AUTO) 0.1 %; LYMPHOCYTES # (AUTO) 1.1 10^3/uL (1.5-3.5); LYMPHOCYTES % (AUTO) 26.8 %; MEAN CORPUSCULAR HEMOGLOBIN 29.7 pg (27.0-31.0); MEAN CORPUSCULAR HGB CONC 32.5 g/dL (32.0-36.0); MEAN CORPUSCULAR VOLUME 91.4 fL (81.0-99.0); MEAN PLATELET VOLUME 8.4 fL (7.9-10.8); MONOCYTES # (AUTO) 0.5 10^3/uL (0.0-1.0); MONOCYTES % (AUTO) 11.9 %; NEUTROPHILS # (AUTO) 2.5 10^3/uL (1.5-6.6); NEUTROPHILS % (AUTO) 60.8 %; PLT - PLATELET COUNT 184 10^3/uL (130-450); RED BLOOD COUNT 4.73 10^6/uL (4.20-5.40); RED CELL DISTRIBUTION WIDTH 13.1 % (12.0-15.0); WHITE BLOOD COUNT 4.1 x10^3/uL (4.8-10.8)
[2018-04-09 13:14] LABS: ALBUMIN 4.1 g/dL (3.2-5.5); ALBUMIN/GLOBULIN RATIO 1.2 (1.0-2.2); ALKALINE PHOSPHATASE 61 IU/L (42-121); ALT ALANINE AMINOTRANSFERASE 21 IU/L (10-60); AST ASPARTATE AMINOTRANSFERASE 36 IU/L (10-42); BILIRUBIN,TOTAL 0.9 mg/dL (0.2-1.0); BUN - BLOOD UREA NITROGEN 22 mg/dL (6-20); CALCIUM 8.8 mg/dL (8.5-10.3); CARBON DIOXIDE - CO2 26 mmol/L (21-32); CHLORIDE 99 mmol/L (101-111); CHOL/HDL RATIO 3.2 (<4.4); CHOLESTEROL 180 mg/dL; CREATININE 0.9 mg/dL (0.4-1.0); GFR - MDRD 62 (>89); GLUCOSE 106 mg/dL (70-100); HDL CHOLESTEROL 57 mg/dL; LDL CHOLESTEROL,CALCULATED 103 mg/dL; LDL/HDL RATIO 1.8 (<4.4); SODIUM 135 mmol/L (135-145); THYROID STIMULATING HORMONE 0.11 uIU/mL (0.34-5.60); TOTAL PROTEIN 7.4 g/dL (6.7-8.2); VLDL CHOLESTEROL 20 mg/dL
[2018-04-09 14:38] LABS: FREE T4 (FREE THYROXINE) 1.06 ng/dL (0.58-1.64)
== END 2018-04-09 09:44 | disposition home or self-care (01) ==
LOC: LAB.WCP 09:43
PROVIDERS: ATTEND Family Medicine
DX: E78.5 Hyperlipidemia, unspecified (principal); I10 Essential (primary) hypertension; M81.0 Age-related osteoporosis without current pathological fracture; Z78.0 Asymptomatic menopausal state; Z79.899 Other long term (current) drug therapy
CPT/HCPCS: 36415; 80053; 80061; 83721; 84439; 84443; 85025

== ENCOUNTER 2018-09-12 10:44 | Day surgery (SDC) | payer MEDICARE ==
[2018-09-12] MEDS ORDERED: LACTATED RINGERS 1,000 ML IV ONE (10:55)
[2018-09-12] MEDS ORDERED: fentaNYL 250 MCG/5 ML VIAL IVP ONE (12:14)
[2018-09-12] MEDS ORDERED: MIDAZOLAM 2 MG/2 ML VIAL IVP ONE (12:14)
[2018-09-12 13:04] VITALS: BP 144/92
== END 2018-09-12 10:45 | disposition home or self-care (01) ==
LOC: SDS 10:44
PROVIDERS: ATTEND Surgery
PROC: 0DJD8ZZ Inspection of Lower Intestinal Tract, Via Natural or Artificial Opening Endoscopic (ICD-10-PCS; principal; 2018-09-12 12:00)
DX: Z09 Encounter for follow-up examination after completed treatment for conditions other than malignant neoplasm (principal); K64.8 Other hemorrhoids; Z86.010 Personal history of colon polyps
CPT/HCPCS: 45378; J3010; J7120

== ENCOUNTER 2020-02-16 15:34 | Observation (INO) | payer MEDICARE ==
[2020-02-16] MEDS ORDERED: SODIUM CHLORIDE 0.9% 500 ML IV STA (15:57)
[2020-02-16] MEDS ORDERED: SODIUM CHLORIDE 0.9% 1,000 ML IV STA (15:57)
[2020-02-16 16:22] LABS: HGB - HEMOGLOBIN 14.6 g/dL (12.0-16.0); LYMPHOCYTES # (AUTO) 1.6 10^3/uL (1.5-3.5); MEAN CORPUSCULAR HEMOGLOBIN 29.6 pg (27.0-31.0); MONOCYTES % (AUTO) 5.9 %; RED BLOOD COUNT 4.94 10^6/uL (4.20-5.40)
[2020-02-16 16:25] LABS: BASOPHILS % (AUTO) 0.5 %; EOSINOPHILS # (AUTO) 0.2 10^3/uL (0.0-0.7); EOSINOPHILS % (AUTO) 2.6 %; MEAN CORPUSCULAR HGB CONC 32.8 g/dL (32.0-36.0); MEAN CORPUSCULAR VOLUME 90.1 fL (81.0-99.0); MEAN PLATELET VOLUME 9.8 fL (7.9-10.8); MONOCYTES # (AUTO) 0.5 10^3/uL (0.0-1.0); NEUTROPHILS % (AUTO) 71.6 %; PLT - PLATELET COUNT 270 10^3/uL (130-450); RED CELL DISTRIBUTION WIDTH 12.8 % (12.0-15.0); WHITE BLOOD COUNT 8.4 x10^3/uL (4.8-10.8)
[2020-02-16 16:30] LABS: PT - PROTHROMBIN TIME 11.6 secs (9.9-12.6)
[2020-02-16 16:37] LABS: PARTIAL THROMBOPLASTIN TIME 32.3 secs (24.9-33.3)
[2020-02-16 16:47] LABS: ALBUMIN 4.3 g/dL (3.2-5.5); ALBUMIN/GLOBULIN RATIO 1.3 (1.0-2.2); BILIRUBIN,TOTAL 0.9 mg/dL (0.2-1.0); CALCIUM 9.4 mg/dL (8.5-10.3); CREATININE 0.7 mg/dL (0.4-1.0); TOTAL PROTEIN 7.6 g/dL (6.7-8.2)
[2020-02-16] MEDS ORDERED: IOVERSOL 320 100 ML VIAL IVP ONE ×2 (17:01→17:07)
--- NOTE | 2020-02-16 17:31 | CT Report ---
PROCEDURE: Abdomen/Pelvis W INDICATIONS: Rectal bleeding CONTRAST: IV CONTRAST: Optiray 320 ml: 100 PO CONTRAST: *NO PO CONTRAST TECHNIQUE: After the administration of intravenous contrast, 5 mm thick sections acquired from the diaphragms to the symphysis. 5 mm thick coronal and sagittal reformats were acquired. For radiation dose reducti on, the following was used: automated exposure control, adjustment of mA and/or kV according to lexie ent size. COMPARISON: None. FINDINGS: Image quality: Excellent. ABDOMEN: Lung bases: Lung bases are clear. Heart size is normal. Solid organs: Liver and spleen are normal in size and enhancement. No acute gallbladder or biliary f inding. Pancreas enhances normally. No adrenal nodules. Kidneys demonstrate normal size and enhance ment, without hydronephrosis. Peritoneum and bowel: Bowel loops demonstrate normal wall thickness and caliber. No free fluid or a ir. Nodes and vessels: No retroperitoneal or mesenteric adenopathy by size criteria. Aorta and inferior vena cava are normal in size. Miscellaneous: No ventral hernias. PELVIS: Genitourinary: Bladder wall thickness is normal. Miscellaneous: No inguinal hernias or adenopathy. Bones: No suspicious bony lesions. No vertebral body compression fractures. IMPRESSION: No acute finding. Reviewed by: Yaw Morris MD on 02/16/2020 5:29 PM PST Approved by: Yaw Morris MD on 02/16/2020 5:29 PM PST Station ID: [id number]
[2020-02-16 18:35] LABS: HGB - HEMOGLOBIN 12.7 g/dL (12.0-16.0); MEAN CORPUSCULAR HEMOGLOBIN 29.3 pg (27.0-31.0); MEAN CORPUSCULAR HGB CONC 32.3 g/dL (32.0-36.0); MEAN CORPUSCULAR VOLUME 90.6 fL (81.0-99.0); MEAN PLATELET VOLUME 9.5 fL (7.9-10.8); RED BLOOD COUNT 4.34 10^6/uL (4.20-5.40); RED CELL DISTRIBUTION WIDTH 12.7 % (12.0-15.0); WHITE BLOOD COUNT 7.5 x10^3/uL (4.8-10.8)
--- NOTE | 2020-02-16 19:16 | ED Physician Documentation ---
PD HPI GI BLEED - Stated complaint Stated Complaint: FEMALE GI - Chief complaint Chief Complaint: Abd Pain - History obtained from History obtained from: Patient - History of Present Illness Timing - onset: Today Timing - duration: Days (1) Timing - details: Gradual onset Pain level max: 0 Pain level now: 0 Contributing factors: No: Bad food, Travel, Recent antibiotics, Alcohol use, Aspirin use, NSAID use Improved by: Other (nothing) Worsened by: Other (nothing) - Additional information Additional information: 74-year-old female presents to the emergency department with bright red blood per rectum this morning. This has been ongoing throughout the day. Nothing makes it better or worse. Similar episode 1.5 years ago attributed to likely internal hemorrhoids. Has had a polyp removed in the past. Last colonoscopy was 1.5 years ago. Review of Systems Ten Systems: 10 systems reviewed and negative Constitutional: denies: Fever, Chills Cardiac: denies: Palpitations Respiratory: denies: Cough GI: denies: Vomiting, Diarrhea Skin: denies: Rash Musculoskeletal: denies: Neck pain, Back pain Neurologic: denies: Headache PD PAST MEDICAL HISTORY - Past Medical History Cardiovascular: Hypertension Respiratory: None Neuro: None Endocrine/Autoimmune: None GI: GERD EPIC ANALYST: None : None HEENT: None Psych: None Musculoskeletal: None Derm: None - Past Surgical History Past Surgical History: Yes General: Colonoscopy HEENT: Tonsil/Adenoidectomy - Present Medications Home Medications: Ambulatory Orders Medication Instructions Recorded Confirmed Aspirin 81 mg PO DAILY 03/15/18 02/16/20 Garlic 500 mg PO DAILY 03/15/18 02/16/20 Multivitamin [Theragran] 1 each PO DAILY 03/15/18 02/16/20 - Allergies Allergies/Adverse Reactions: Allergies Allergy/AdvReac Type Severity Reaction Status Date / Time hydrochlorothiazide Allergy Rash Verified 02/16/20 15:51 - Social History Does the pt smoke?: No Smoking Status: Never smoker Does the pt drink ETOH?: Yes Does the pt have substance abuse?: No - Immunizations Immunizations are current?: Yes - POLST Patient has POLST: No POLST Status: Full Code PD ED PE NORMAL - Vitals Vital signs reviewed: Yes - General General: Alert and oriented X 3, No acute distress, Well developed/nourished - HEENT HEENT: PERRL, Moist mucous membranes - Neck Neck: Supple, no meningeal sign - Cardiac Cardiac: RRR, Strong equal pulses - Respiratory Respiratory: No respiratory distress, Clear bilaterally - Abdomen Abdomen: Normal bowel sounds, Soft, Non tender, Non distended - Female Female : Other (Rectal exam shows gross blood on the glove.) - Derm Derm: Warm and dry - Extremities Extremities: No edema - Neuro Neuro: Alert and oriented X 3 - Psych Psych: Normal mood, Normal affect Results - Vitals Vitals: Vital Signs - 24 hr 02/16/20 02/16/20 02/16/20 15:40 16:09 17:42 Temperature 36.8 C 37.0 C Heart Rate 119 H 118 H 97 Respiratory 20 18 16 Rate Blood Pressure 92/54 L 195/126 H 199/118 H O2 Saturation 100 97 96 02/16/20 19:20 Temperature 36.9 C Heart Rate 105 H Respiratory 24 Rate Blood Pressure 171/113 H O2 Saturation 98 Oxygen O2 Source Room air - Labs Labs: Laboratory Tests 02/16/20 02/16/20 02/16/20 16:10 16:10 16:10 WBC 8.4 RBC 4.94 Hgb 14.6 Hct 44.5 MCV 90.1 MCH 29.6 MCHC 32.8 RDW 12.8 Plt Count 270 MPV 9.8 Neut # (Auto) 6.0 Lymph # (Auto) 1.6 Lewis # (Auto) 0.5 Eos # (Auto) 0.2 Baso # (Auto) 0.0 Absolute Nucleated RBC 0.00 Nucleated RBC % 0.0 PT 11.6 INR 1.0 APTT 32.3 Sodium 138 Potassium 3.3 L Chloride 104 Carbon Dioxide 25 Anion Gap 9.0 BUN 21 H Creatinine 0.7 Estimated GFR (MDRD) 82 L Glucose 141 H Calcium 9.4 Total Bilirubin 0.9 AST 26 ALT 24 Alkaline Phosphatase 94 Total Protein 7.6 Albumin 4.3 Globulin 3.3 Albumin/Globulin Ratio 1.3 Lipase 38 Nasal Adenovirus (PCR) Nasal B. parapertussis DNA (PCR) Nasal Coronavir 229E PCR Nasal Coronavir HKU1 PCR Nasal Coronavir NL63 PCR Nasal Coronavir OC43 PCR Nasal Enterovir/Rhinovir PCR Nasal Influenza B PCR Nasal Influenza A PCR Nasal Parainfluen 1 PCR Nasal Parainfluen 2 PCR Nasal Parainfluen 3 PCR Nasal Parainfluen 4 PCR Nasal RSV (PCR) Nasal B.pertussis DNA PCR Nasal C.pneumoniae (PCR) Librado Human Metapneumo PCR Nasal M.pneumoniae (PCR) Nasal SARS-CoV-2 (PCR) Blood Type Antibody Screen 02/16/20 02/16/20 02/16/20 16:10 18:30 19:45 WBC 7.5 RBC 4.34 Hgb 12.7 Hct 39.3 MCV 90.6 MCH 29.3 MCHC 32.3 RDW 12.7 Plt Count 247 MPV 9.5 Neut # (Auto) Lymph # (Auto) Lewis # (Auto) Eos # (Auto) Baso # (Auto) Absolute Nucleated RBC Nucleated RBC % PT INR APTT Sodium Potassium Chloride Carbon Dioxide Anion Gap BUN Creatinine Estimated GFR (MDRD) Glucose Calcium Total Bilirubin AST ALT Alkaline Phosphatase Total Protein Albumin Globulin Albumin/Globulin Ratio Lipase Nasal Adenovirus (PCR) NOT DETECTED Nasal B. parapertussis DNA (PCR) NOT DETECTED Nasal Coronavir 229E PCR NOT DETECTED Nasal Coronavir HKU1 PCR NOT DETECTED Nasal Coronavir NL63 PCR NOT DETECTED Nasal Coronavir OC43 PCR NOT DETECTED Nasal Enterovir/Rhinovir PCR NOT DETECTED Nasal Influenza B PCR NOT DETECTED Nasal Influenza A PCR NOT DETECTED Nasal Parainfluen 1 PCR NOT DETECTED Nasal Parainfluen 2 PCR NOT DETECTED Nasal Parainfluen 3 PCR NOT DETECTED Nasal Parainfluen 4 PCR NOT DETECTED Nasal RSV (PCR) NOT DETECTED Nasal B.pertussis DNA PCR NOT DETECTED Nasal C.pneumoniae (PCR) NOT DETECTED Librado Human Metapneumo PCR NOT DETECTED Nasal M.pneumoniae (PCR) NOT DETECTED Nasal SARS-CoV-2 (PCR) NOT DETECTED Blood Type B POSITIVE Antibody Screen NEGATIVE - Rads (name of study) CT abdomen pelvis Radiology: Prelim report reviewed, EMP read contemporaneously, See rad report (No acute finding. ) PD MEDICAL DECISION MAKING - ED course Complexity details: reviewed results, re-evaluated patient, considered differential, d/w patient, d/w store sales consultant ED course: 74-year-old female with bright red blood per rectum today. Had several more episodes in the emergency department with a large amount of bleeding. Given tranexamic acid. Her hemoglobin was rechecked and 2 g of hemoglobin had dropped in about 2 hours. She had only received about 500 mL of IV fluids at this point. Discussed the case with Dr. Larson, general surgery who will consult on the patient. Discussed the case with Dr. Ruiz, hospitalist who graciously accepts for observation. This document was made in part using voice recognition software. While efforts are made to proofread this document, sound alike and grammatical errors may occur. Departure - Departure Disposition: ED Place in Observation Clinical Impression: Lower GI bleed, Hematochezia, Tachycardia Condition: Stable Discharge Date/Time: 02/16/20 20:45
[2020-02-16] MEDS ORDERED: TRANEXAMIC ACID 1,000 MG in SODIUM CHLORIDE 0.9% 100ML 100 ML IV STA (19:24)
[2020-02-16] MEDS ORDERED: oxyCODONE 5 MG TABLET PO PRN (20:05)
[2020-02-16] MEDS ORDERED: ONDANSETRON ODT 4 MG TABLET TL PRN (20:05)
[2020-02-16] MEDS ORDERED: SODIUM CHLORIDE FLUSH 0.9% 10 ML SYRINGE IVP PRN (20:05)
[2020-02-16] MEDS ORDERED: ONDANSETRON 4 MG/2 ML VIAL IVP PRN (20:05)
[2020-02-16] MEDS ORDERED: ACETAMINOPHEN 325 MG TABLET PO PRN (20:05)
--- NOTE | 2020-02-16 20:14 | HISTORY & PHYSICAL EXAMINATION ---
Chief Complaint - Chief Complaint Chief Complaint: BRBPR History of Present Illness - Admitted From Admitted From:: Home/ER - History Obtained From Records Reviewed: [facility] History obtained from: patient and Dr. Petty Exam Limitations: none - History of Present Illness HPI Comment/Other: 74-year old white female who presented in February 2018 with bright red blood per rectum and was subsequently found to have a large tubulovillous adenoma with high-grade dysplasia as well as extensive diverticulosis now presents with another episode of bright red blood per rectum. Is been going on all day long. She has not had any abdominal pain. No rectal pain. She has had no change in bowel habits until today. There is been no weight loss. She denies fever, chills, sweats. She did have a follow-up colonoscopy in August 2018 with no findings. she was evaluated in the emergency room by Dr. Valiente. Hemoglobin has dropped slightly and she has gone from 14.6 g of hemoglobin to 12.7 g of hemoglobin since being in the emergency room. She is mildly tachycardic at 105- 119. She is hypertensive [place] 171-199 [place] [address]. Abdomen and pelvis CT shows bowel loops that are normal wall caliber and thickness. No free fluid or air. No retroperitoneal or mesenteric adenopathy. Essentially there are no acute findings. Our service is being asked to place the patient in observation status for follow-up of possible GI bleed. Dr. Larson, general surgery, has been notified. If the patient's hemoglobin continues to drop she may be able to get a colonoscopy tomorrow. However if the patient's hemoglobin is stable, she may be able to be discharged home and followed in the outpatient setting. History - Past Medical History Cardiovascular: reports: Hypertension (She does not take blood pressure pills for this bc doesn't like meds) Respiratory: reports: None Neuro: reports: None Endocrine/Autoimmune: reports: None GI: reports: GERD, Colon polyps ENVIRONMENTAL AUDITOR: reports: Other () : reports: None HEENT: reports: None Psych: reports: None Musculoskeletal: reports: None Derm: reports: None MRSA Hx?: No - Past Surgical History General: reports: Colonoscopy (1998, 2019x2) HEENT: reports: Tonsil/Adenoidectomy - Family & Social History Family History: Mother: Alive and Well, Cancer (colon cancer age 96), Father: , CAD, Brother: , CAD Family History Comment/Other: no children Living arrangement: At home Living Situation: With spouse/s.o. Social History Notes: Patient is originally from [place] having her Malag[place] 41 years ago. He is bilingual. They speak almost no Slovenian at home. They used to live in the [facility] but [place] the [place] 11 years since her retired. He worked for [employer] in [employer]. 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 She is a non-smoker, rare alcohol drinker. No history of recreational substance abuse. - Substance History Use: Uses substance without health or social issues: NONE Abuse: Recurrent use of substance despite neg consequences: NONE Dependence: Experiences withdrawal or developed tolerances: NONE - POLST Patient has POLST: No POLST Status: Full Code Meds/Allgy - Home Medications Home Medications: Ambulatory Orders Medication Instructions Recorded Confirmed Aspirin 81 mg PO DAILY 03/15/18 02/16/20 Garlic 500 mg PO DAILY 03/15/18 02/16/20 Multivitamin [Theragran] 1 each PO DAILY 03/15/18 02/16/20 - Allergies Allergies/Adverse Reactions: Allergies Allergy/AdvReac Type Severity Reaction Status Date / Time hydrochlorothiazide Allergy Rash Verified 02/16/20 15:51 Review of Systems - Constitutional Constitutional: denies: Fatigue, Fever, Chills, Malaise, Weakness, Poor appetite, Night sweats - Eyes Eyes: denies: Pain, Amaurosis, Blurred vision - Ears, Nose & Throat Ears, Nose & Throat: denies: Ear pain, Tinnitus, Nasal pain, Nasal discharge, Sore throat, Hoarseness - Cardiovascular Cariovascular: denies: Irregular heart rate, Palpitations, Chest pain, Edema, Syncope, Exertional dyspnea, Decr. exercise tolerance - Respiratory Respiratory: denies: Cough, Sputum production, Wheezing, SOB at rest, SOB with exertion - Gastrointestinal Gastrointestinal: reports: Rectal bleeding, Bloody stools. denies: Abdominal pain, Abdominal distention, Constipation, Diarrhea, Change in bowel habits, Black stools, Nausea, Vomiting - Genitourinary Genitourinary: denies: Dysuria, Frequency, Urgency, Hematuria, Incontinence - Musculoskeletal Musculoskeletal: denies: Muscle pain, Back pain, Muscle aches, Stiffness, Joint pain - Integumentary Integumentary: denies: Rash, Pruritis, Lesions, Dryness - Neurological Neurological: denies: General weakness, Focal weakness, Headache, Dizziness, Memory problems, Pre-existing deficit - Psychiatric Psychiatric: denies: Depression, Anxiety, Suicidal - Endocrine Endocrine: denies: Polyuria, Polydypsia, Polyphagia - Hematologic/Lymphatic Hematologic/Lymphatic: denies: Anemia, Bruising, Petechiae, Lymphadenopathy, Bleeding tendencies Prior Level of Functionality: Completely independent female with activities of daily living. Cleans house, dresses self, pays bills, drives a car. Does not use any durable medical equipment. Exam - Vital Signs Reviewed Vital Signs: Yes Vital Signs: Vital Signs x48h Temp Pulse Resp BP Pulse Ox 02/16/20 19:20 36.9 C 105 H 24 171/113 H 98 02/16/20 17:42 37.0 C 97 16 199/118 H 96 02/16/20 16:09 118 H 18 195/126 H 97 02/16/20 15:40 36.8 C 119 H 20 92/54 L 100 - Physical Exam General Appearance: positive: No acute distress, Alert, Other (5 foot 3 inch Citizen Of [place] female who weighs 50.5 kg, pleasant, lucid, no problems with speech and history) Eyes Bilateral: positive: PERRL, EOMI ENT: positive: Pharynx nml, No signs of dehydration Neck: positive: No JVD. negative: Stiff neck Respiratory: positive: No respiratory distress. negative: Wheezes, Rales, Rhonchi Cardiovascular: positive: Regular rate & rhythm, Tachycardia (No longer present. She was tachycardic in the emergency room). negative: Systolic murmur, Gallop/S4, Friction rub Peripheral Pulses: positive: 1+ Abdomen: positive: Non-tender, No organomegaly, Nml bowel sounds, No distention Rectal: positive: Stool - heme POS, Bloody stool Skin: positive: Warm, Dry. negative: Diaphoresis, Pallor, Skin rash Extremities: positive: Non-tender, Full ROM. negative: Pedal edema Neurologic/Psychiatric: positive: Oriented x3, CN's nml (2-12), Motor nml, Sensation nml Conclusion/Plan - Problem List (1) Hematochezia Conclusion/Plan: This is a second presentation for this patient. She does have a history of internal hemorrhoids. Hemoglobin has dropped 2 g since being in the emergency room. Hypertensive response and is tachycardic. She does not seem to be having ischemic colitis, but may have a diverticular bleed, another tubular adenoma bleed (less likely because last colonoscopy negative). Plan: Observation status Serial hemograms Type and screen Surgery consult already called for by Dr. Valiente to Dr. Larson (2) Hypertension Conclusion/Plan: She says that she has seen Dr. Sierra, then Dr. Morgan, and is currently about to see Sravan Reyes. In the past she is tried multiple blood pressure medications and really does not like them. She feels like she gets side effects from them that are intolerable. She would prefer to be off of them. Now that she is on MedSurg, her systolic is now 150s. She would prefer not to take any medication at this time. We did discuss risk of stroke when her systolic is in the 190s and your diastolic is in the 1 teens. Plan: Treat if only symptomatic Follow-up in the outpatient setting with Dr. Still Qualifiers: Hypertension type: essential hypertension Qualified Code(s): I10 - Esse ntial (primary) hypertension - Lab Results Lab results reviewed: Yes Fish Bones: 02/16/20 18:30 02/16/20 16:10 - Diagnostic Imaging Results Diagnostic Imaging Results: positive: Final report reviewed Diagnostic Imaging Results Comments: EXAM: [id number] CT/ABPEW ([id number]) PROCEDURE: Abdomen/Pelvis W INDICATIONS: Rectal bleeding CONTRAST: IV CONTRAST: Optiray 320 ml: 100 PO CONTRAST: *NO PO CONTRAST TECHNIQUE: After the administration of intravenous contrast, 5 mm thick sections acquired from the diaphragms to the symphysis. 5 mm thick coronal and sagittal reformats were acquired. For radiation dose reduction, the following was used: automated exposure control, adjustment of mA and/or kV according to patient size. COMPARISON: None. FINDINGS: Image quality: Excellent. ABDOMEN: Lung bases: Lung bases are clear. Heart size is normal. Solid organs: Liver and spleen are normal in size and enhancement. No acute gallbladder or biliary finding. Pancreas enhances normally. No adrenal nodules. Kidneys demonstrate normal size and enhancement, without hydronephrosis. Peritoneum and bowel: Bowel loops demonstrate normal wall thickness and caliber. No free fluid or air. Nodes and vessels: No retroperitoneal or mesenteric adenopathy by size criteria. Aorta and inferior vena cava are normal in size. Miscellaneous: No ventral hernias. PELVIS: Genitourinary: Bladder wall thickness is normal. Miscellaneous: No inguinal hernias or adenopathy. Bones: No suspicious bony lesions. No vertebral body compression fractures. IMPRESSION: No acute finding. Reviewed by: Yaw Morris MD on 02/16/2020 5:29 PM PST Approved by: Yaw Morris MD on 02/16/2020 5:29 PM PST Station ID: [id number] [place] Folder: Reading Radiologist: Yaw Morris MD Releasing Radiologist: Yaw Morris MD Released Date Time: 02/16/20 857 - EKG Results EKG Interpreted Independently: No Core Measures - Anticipated LOS I expect patient to be DC'd or transferred within 96 hours.: Yes - DVT/VTE - Prophylaxis VTE/DVT Device ordered at admit?: Yes
[2020-02-16 20:55] LABS: C. PNEUMONIAE- RESP PCR PANEL NOT DETECTED
[2020-02-16] MEDS ORDERED: LACTATED RINGERS 1,000 ML IV SCH (21:00)
[2020-02-16] MEDS ORDERED: POTASSIUM CHLORIDE 20 MEQ TABLET PO ONE (22:53)
[2020-02-16] MEDS: SODIUM CHLORIDE FLUSH 0.9% 10 ML SYRINGE IVP SCH (23:32)
[2020-02-17 00:20] LABS: HGB - HEMOGLOBIN 12.5 g/dL (12.0-16.0)
[2020-02-17 05:51] LABS: HGB - HEMOGLOBIN 11.3 g/dL (12.0-16.0)
[2020-02-17 07:44] LABS: CALCIUM 8.3 mg/dL (8.5-10.3); CREATININE 0.6 mg/dL (0.4-1.0)
[2020-02-17 07:51] LABS: BASOPHILS % (AUTO) 0.6 %; EOSINOPHILS # (AUTO) 0.3 10^3/uL (0.0-0.7); EOSINOPHILS % (AUTO) 3.9 %; HGB - HEMOGLOBIN 11.4 g/dL (12.0-16.0); LYMPHOCYTES # (AUTO) 2.2 10^3/uL (1.5-3.5); LYMPHOCYTES % (AUTO) 34.4 %; MEAN CORPUSCULAR HEMOGLOBIN 29.9 pg (27.0-31.0); MEAN CORPUSCULAR HGB CONC 32.5 g/dL (32.0-36.0); MEAN CORPUSCULAR VOLUME 92.1 fL (81.0-99.0); MONOCYTES # (AUTO) 0.5 10^3/uL (0.0-1.0); MONOCYTES % (AUTO) 7.7 %; NEUTROPHILS # (AUTO) 3.4 10^3/uL (1.5-6.6); NEUTROPHILS % (AUTO) 53.1 %; PLT - PLATELET COUNT 236 10^3/uL (130-450); RED BLOOD COUNT 3.81 10^6/uL (4.20-5.40); WHITE BLOOD COUNT 6.4 x10^3/uL (4.8-10.8)
[2020-02-17] MEDS: SODIUM CHLORIDE FLUSH 0.9% 10 ML SYRINGE IVP SCH ×3 (09:03→23:39)
[2020-02-17] MEDS: D5.45NS W/20 MEQ KCL 1,000 ML IV SCH ×2 (09:03→21:11)
[2020-02-17 13:02] LABS: HGB - HEMOGLOBIN 11.9 g/dL (12.0-16.0)
--- NOTE | 2020-02-17 13:41 | PROVIDER PROGRESS NOTE ---
Subjective - Prog Note Date Prog Note Date: 02/17/20 - Subjective Pt reports feeling: Improved Subjective: Patient reported she had 3 time bowel movement, still had GI bleeding with fresh bloody. Her hemoglobin is 11.4 From admission at 14.6 with slight Hemodilution. I called general surgeon Dr. Domínguez, he will see pt on This afternoon 3 PM. Patient denies shortness breathing, dizziness, fever, cough, chest pain. Patient reported she had a colonoscopy done about 2 years ago at 2019 which was negative per she report. Current Medications - Current Medications Current Medications: Active Medications Acetaminophen (Acetaminophen 325 Mg Tablet) 650 mg PO Q4HR PRN PRN Reason: Pain 1 to 4 Potassium Chloride/Dextrose/Sod Cl (D5.45ns W/20 Meq Kcl) 1,000 mls @ 83.333 mls/hr IV .Q12H [facility] Last Infusion: 02/17/20 12:11 Dose: 83.333 mls/hr Documented by: Ondansetron HCl (Ondansetron Odt 4 Mg Tablet) 4 mg TL Q6HR PRN PRN Reason: Nausea / Vomiting Ondansetron HCl (Ondansetron 4 Mg/2 Ml Vial) 4 mg IVP Q6HR PRN PRN Reason: Nausea / Vomiting Oxycodone HCl (Oxycodone 5 Mg Tablet) 5 mg PO Q4HR PRN PRN Reason: Pain 5 to 7 Sodium Chloride (Sodium Chloride Flush 0.9% 10 Ml Syringe) 10 ml IVP PRN PRN PRN Reason: NEEDED PER PROVIDER ORDERS Sodium Chloride (Sodium Chloride Flush 0.9% 10 Ml Syringe) 10 ml IVP 0100,0900,1700 [facility] Last Admin: 02/17/20 09:03 Dose: 10 ml Documented by: Aspirin 81 mg PO DAILY 03/15/18 Garlic 500 mg PO DAILY 03/15/18 Multivitamin [Theragran] 1 each PO DAILY 03/15/18 Objective - Vital Signs/Intake & Output Vital Signs: Vital Signs x48h Temp Pulse Resp BP Pulse Ox 02/17/20 12:00 36.7 C 86 16 132/80 H 96 02/17/20 07:26 36.8 C 77 18 157/93 H 98 Intake & Output: Intake & Output 02/14/20 02/15/20 02/16/20 02/17/20 23:59 23:59 23:59 23:59 Intake Total 1473.750 3995.443 Output Total 350 1400 Balance 1031.667 -290.557 - Objective General Appearance: positive: No acute distress, Alert. negative: Lethargic Eyes Bilateral: positive: Normal inspection, PERRL, No lid inflammation ENT: positive: ENT inspection nml, No signs of dehydration. negative: Purulent nasal drainage Neck: positive: Nml inspection, Trachea midline. negative: Thyromegaly, Trache al deviation Respiratory: positive: Chest non-tender, No respiratory distress, Breath sounds nml. negative: Wheezes, Rales, Rhonchi Cardiovascular: positive: Regular rate & rhythm, No murmur, No gallop. negative: Tachycardia, Bradycardia, Systolic murmur, Diastolic murmur Peripheral Pulses: 2+ Radial (R), 2+ Radial (L) Abdomen: positive: Non-tender, Nml bowel sounds, No distention. negative: Te nderness, Guarding, Rebound Back: positive: Nml inspection. negative: CVA tenderness (R), CVA tenderness (L) Skin: positive: Color nml, Warm, Dry. negative: Cyanosis, Diaphoresis, Pallor Extremities: positive: Non-tender, Full ROM, Nml appearance. negative: Calf tenderness Neurologic/Psychiatric: positive: Oriented x3, Motor nml, Sensation nml, Mood/affect nml. negative: Weakness, Sensory loss, Facial droop, Slurred/abnml speech, Depressed mood/affect - Lab Results Fish Bones: 02/17/20 12:56 02/17/20 05:38 Other Labs: Lab Results x24hrs 02/17/20 02/17/20 02/17/20 Range/Units 12:56 05:38 05:38 WBC 6.4 (4.8-10.8) x10^3/uL RBC 3.81 L (4.20-5.40) 10^6/uL Hgb 11.9 L 11.4 L (12.0-16.0) g/dL Hct 36.3 L 35.1 L (37.0-47.0) % MCV 92.1 (81.0-99.0) fL MCH 29.9 (27.0-31.0) pg MCHC 32.5 (32.0-36.0) g/dL RDW 13.0 (12.0-15.0) % Plt Count 236 (130-450) 10^3/uL MPV 10.0 (7.9-10.8) fL Neut # (Auto) 3.4 (1.5-6.6) 10^3/uL Lymph # (Auto) 2.2 (1.5-3.5) 10^3/uL [place] # (Auto) 0.5 (0.0-1.0) 10^3/uL Eos # (Auto) 0.3 (0.0-0.7) 10^3/uL Baso # (Auto) 0.0 (0.0-0.1) 10^3/uL Absolute Nucleated RBC 0.00 x10^3/uL Nucleated RBC % 0.0 /100WBC PT (9.9-12.6) secs INR (0.8-1.2) APTT (24.9-33.3) secs Sodium 140 (135-145) mmol/L Potassium 3.7 (3.5-5.0) mmol/L Chloride 111 (101-111) mmol/L Carbon Dioxide 22 (21-32) mmol/L Anion Gap 7.0 (6-13) BUN 13 (6-20) mg/dL Creatinine 0.6 (0.4-1.0) mg/dL Estimated GFR (MDRD) 98 (>89) Glucose 102 H (70-100) mg/dL Calcium 8.3 L (8.5-10.3) mg/dL Total Bilirubin (0.2-1.0) mg/dL AST (10-42) IU/L ALT (10-60) IU/L Alkaline Phosphatase (42-121) IU/L Total Protein (6.7-8.2) g/dL Albumin (3.2-5.5) g/dL Globulin (2.1-4.2) g/dL Albumin/Globulin Ratio (1.0-2.2) Lipase (22-51) U/L Nasal Adenovirus (PCR) Nasal B. parapertussis DNA (PCR) Nasal Coronavir 229E PCR Nasal Coronavir HKU1 PCR Nasal Coronavir NL63 PCR Nasal Coronavir OC43 PCR Nasal Enterovir/Rhinovir PCR Nasal Influenza B PCR Nasal Influenza A PCR Nasal Parainfluen 1 PCR Nasal Parainfluen 2 PCR Nasal Parainfluen 3 PCR Nasal Parainfluen 4 PCR Nasal RSV (PCR) Nasal B.pertussis DNA PCR Nasal C.pneumoniae (PCR) [place] Human Metapneumo PCR Nasal M.pneumoniae (PCR) Nasal SARS-CoV-2 (PCR) Blood Type Antibody Screen 02/17/20 02/17/20 02/16/20 Range/Units 05:38 00:15 19:45 WBC (4.8-10.8) x10^3/uL RBC (4.20-5.40) 10^6/uL Hgb 11.3 L 12.5 (12.0-16.0) g/dL Hct 35.7 L 38.5 (37.0-47.0) % MCV (81.0-99.0) fL MCH (27.0-31.0) pg MCHC (32.0-36.0) g/dL RDW (12.0-15.0) % Plt Count (130-450) 10^3/uL MPV (7.9-10.8) fL Neut # (Auto) (1.5-6.6) 10^3/uL Lymph # (Auto) (1.5-3.5) 10^3/uL [place] # (Auto) (0.0-1.0) 10^3/uL Eos # (Auto) (0.0-0.7) 10^3/uL Baso # (Auto) (0.0-0.1) 10^3/uL Absolute Nucleated RBC x10^3/uL Nucleated RBC % /100WBC PT (9.9-12.6) secs INR (0.8-1.2) APTT (24.9-33.3) secs Sodium (135-145) mmol/L Potassium (3.5-5.0) mmol/L Chloride (101-111) mmol/L Carbon Dioxide (21-32) mmol/L Anion Gap (6-13) BUN (6-20) mg/dL Creatinine (0.4-1.0) mg/dL Estimated GFR (MDRD) (>89) Glucose (70-100) mg/dL Calcium (8.5-10.3) mg/dL Total Bilirubin (0.2-1.0) mg/dL AST (10-42) IU/L ALT (10-60) IU/L Alkaline Phosphatase (42-121) IU/L Total Protein (6.7-8.2) g/dL Albumin (3.2-5.5) g/dL Globulin (2.1-4.2) g/dL Albumin/Globulin Ratio (1.0-2.2) Lipase (22-51) U/L Nasal Adenovirus (PCR) NOT DETECTED Nasal B. parapertussis DNA (PCR) NOT DETECTED Nasal Coronavir 229E PCR NOT DETECTED Nasal Coronavir HKU1 PCR NOT DETECTED Nasal Coronavir NL63 PCR NOT DETECTED Nasal Coronavir OC43 PCR NOT DETECTED Nasal Enterovir/Rhinovir PCR NOT DETECTED Nasal Influenza B PCR NOT DETECTED Nasal Influenza A PCR NOT DETECTED Nasal Parainfluen 1 PCR NOT DETECTED Nasal Parainfluen 2 PCR NOT DETECTED Nasal Parainfluen 3 PCR NOT DETECTED Nasal Parainfluen 4 PCR NOT DETECTED Nasal RSV (PCR) NOT DETECTED Nasal B.pertussis DNA PCR NOT DETECTED Nasal C.pneumoniae (PCR) NOT DETECTED [place] Human Metapneumo PCR NOT DETECTED Nasal M.pneumoniae (PCR) NOT DETECTED Nasal SARS-CoV-2 (PCR) NOT DETECTED Blood Type Antibody Screen 02/16/20 02/16/20 02/16/20 Range/Units 18:30 16:10 16:10 WBC 7.5 (4.8-10.8) x10^3/uL RBC 4.34 (4.20-5.40) 10^6/uL Hgb 12.7 (12.0-16.0) g/dL Hct 39.3 (37.0-47.0) % MCV 90.6 (81.0-99.0) fL MCH 29.3 (27.0-31.0) pg MCHC 32.3 (32.0-36.0) g/dL RDW 12.7 (12.0-15.0) % Plt Count 247 (130-450) 10^3/uL MPV 9.5 (7.9-10.8) fL Neut # (Auto) (1.5-6.6) 10^3/uL Lymph # (Auto) (1.5-3.5) 10^3/uL [place] # (Auto) (0.0-1.0) 10^3/uL Eos # (Auto) (0.0-0.7) 10^3/uL Baso # (Auto) (0.0-0.1) 10^3/uL Absolute Nucleated RBC x10^3/uL Nucleated RBC % /100WBC PT (9.9-12.6) secs INR (0.8-1.2) APTT (24.9-33.3) secs Sodium 138 (135-145) mmol/L Potassium 3.3 L (3.5-5.0) mmol/L Chloride 104 (101-111) mmol/L Carbon Dioxide 25 (21-32) mmol/L Anion Gap 9.0 (6-13) BUN 21 H (6-20) mg/dL Creatinine 0.7 (0.4-1.0) mg/dL Estimated GFR (MDRD) 82 L (>89) Glucose 141 H (70-100) mg/dL Calcium 9.4 (8.5-10.3) mg/dL Total Bilirubin 0.9 (0.2-1.0) mg/dL AST 26 (10-42) IU/L ALT 24 (10-60) IU/L Alkaline Phosphatase 94 (42-121) IU/L Total Protein 7.6 (6.7-8.2) g/dL Albumin 4.3 (3.2-5.5) g/dL Globulin 3.3 (2.1-4.2) g/dL Albumin/Globulin Ratio 1.3 (1.0-2.2) Lipase 38 (22-51) U/L Nasal Adenovirus (PCR) Nasal B. parapertussis DNA (PCR) Nasal Coronavir 229E PCR Nasal Coronavir HKU1 PCR Nasal Coronavir NL63 PCR Nasal Coronavir OC43 PCR Nasal Enterovir/Rhinovir PCR Nasal Influenza B PCR Nasal Influenza A PCR Nasal Parainfluen 1 PCR Nasal Parainfluen 2 PCR Nasal Parainfluen 3 PCR Nasal Parainfluen 4 PCR Nasal RSV (PCR) Nasal B.pertussis DNA PCR Nasal C.pneumoniae (PCR) [place] Human Metapneumo PCR Nasal M.pneumoniae (PCR) Nasal SARS-CoV-2 (PCR) Blood Type B POSITIVE Antibody Screen NEGATIVE 02/16/20 02/16/20 Range/Units 16:10 16:10 WBC 8.4 (4.8-10.8) x10^3/uL RBC 4.94 (4.20-5.40) 10^6/uL Hgb 14.6 (12.0-16.0) g/dL Hct 44.5 (37.0-47.0) % MCV 90.1 (81.0-99.0) fL MCH 29.6 (27.0-31.0) pg MCHC 32.8 (32.0-36.0) g/dL RDW 12.8 (12.0-15.0) % Plt Count 270 (130-450) 10^3/uL MPV 9.8 (7.9-10.8) fL Neut # (Auto) 6.0 (1.5-6.6) 10^3/uL Lymph # (Auto) 1.6 (1.5-3.5) 10^3/uL [place] # (Auto) 0.5 (0.0-1.0) 10^3/uL Eos # (Auto) 0.2 (0.0-0.7) 10^3/uL Baso # (Auto) 0.0 (0.0-0.1) 10^3/uL Absolute Nucleated RBC 0.00 x10^3/uL Nucleated RBC % 0.0 /100WBC PT 11.6 (9.9-12.6) secs INR 1.0 (0.8-1.2) APTT 32.3 (24.9-33.3) secs Sodium (135-145) mmol/L Potassium (3.5-5.0) mmol/L Chloride (101-111) mmol/L Carbon Dioxide (21-32) mmol/L Anion Gap (6-13) BUN (6-20) mg/dL Creatinine (0.4-1.0) mg/dL Estimated GFR (MDRD) (>89) Glucose (70-100) mg/dL Calcium (8.5-10.3) mg/dL Total Bilirubin (0.2-1.0) mg/dL AST (10-42) IU/L ALT (10-60) IU/L Alkaline Phosphatase (42-121) IU/L Total Protein (6.7-8.2) g/dL Albumin (3.2-5.5) g/dL Globulin (2.1-4.2) g/dL Albumin/Globulin Ratio (1.0-2.2) Lipase (22-51) U/L Nasal Adenovirus (PCR) Nasal B. parapertussis DNA (PCR) Nasal Coronavir 229E PCR Nasal Coronavir HKU1 PCR Nasal Coronavir NL63 PCR Nasal Coronavir OC43 PCR Nasal Enterovir/Rhinovir PCR Nasal Influenza B PCR Nasal Influenza A PCR Nasal Parainfluen 1 PCR Nasal Parainfluen 2 PCR Nasal Parainfluen 3 PCR Nasal Parainfluen 4 PCR Nasal RSV (PCR) Nasal B.pertussis DNA PCR Nasal C.pneumoniae (PCR) [place] Human Metapneumo PCR Nasal M.pneumoniae (PCR) Nasal SARS-CoV-2 (PCR) Blood Type Antibody Screen ABX Reporting Has patient been on IV antibiotics over the past 48 hours?: No Sepsis Event Note (H) - Evaluation Current Stage of Sepsis: Ruled out Assessment/Plan - Problem List (1) Hematochezia Impression: 02/16 Patient reported she still had fresh blood stool. Her hemoglobin dropped to 11.4 from 14.6 at the admission, although there is slight Hemodilution. Patient reported she had internal hemorrhoids in the past. Patient reported she had colonoscopy about 2 years ago which was Unremarkable. Surgeon was called and and will see the patient at this afternoon. We will continue H&H to monitor, Continue n.p.o., with intravenous IV fluids. We will follow-up with surgeon's plan for pt. Patient already had blood type and screen. (2) Hypertension Stable, She would prefer not to take any medication at this time. Follow-up in the outpatient with her PCP for management.
--- NOTE | 2020-02-17 16:10 | HISTORY & PHYSICAL EXAMINATION ---
Chief Complaint - Chief Complaint Chief Complaint: blood per rectum yesterday GI Bleed Admit Template - History Obtained From Records Reviewed: Old records reviewed History obtained from: Patient Exam limitations: No limitations - History of Present Illness Severity at the worst: reports: Moderate Bleeding quality: reports: Mello blood stool Context-bleeding started w/: reports: Spontaneous (short time after a normal bm) Timing: reports: Abrupt onset Duration: reports: Hours: (no bleeding today) HPI Comment/Other: She is a 74 year old with similar history about 2 years ago. she had a spontaneous bleed which resolved. She had a colonoscopy 03/16/2018. A 3 cm polyp was removed. She had moderate diverticulosis through out the colon. small internal hemorrhoids were seen. Pictures are reviewed. She had a follow up colonoscopy 09/12/2018. No polyps or recurrence. Follow up colonoscopy recommended in 5 years. She denies hemorrhoid problems. She denies pain, prolapse swelling. She describes having a normal bm yesterday followed by sensation of having diarrhea and she passed gross blood. She feeels well today. PMH/PSH - Past Medical History Cardiovascular: positive: Hypertension Respiratory: positive: None Neuro: positive: None Endocrine/Autoimmune: positive: None GI: positive: GERD HEAT TREATING FURNACE TENDER: positive: None : positive: None HEENT: positive: None Psych: positive: None Musculoskeletal: positive: None Derm: positive: None MRSA Hx?: No - Past Surgical History General: positive: Colonoscopy HEENT: positive: Tonsil/Adenoidectomy Social & Family Hx - Social History Does the pt smoke?: No Smoking Status: Never smoker Does the pt drink ETOH?: Yes Does the pt have substance abuse?: No - POLST Patient has POLST: No POLST Status: Full Code Meds/Allgy - Home Medications Home Medications: Ambulatory Orders Medication Instructions Recorded Confirmed Aspirin 81 mg PO DAILY 03/15/18 02/16/20 Garlic 500 mg PO DAILY 03/15/18 02/16/20 Multivitamin [Theragran] 1 each PO DAILY 03/15/18 02/16/20 - Allergies Allergies/Adverse Reactions: Allergies Allergy/AdvReac Type Severity Reaction Status Date / Time hydrochlorothiazide Allergy Rash Verified 02/16/20 15:51 Review of Systems - Other Findings Other Findings: 10 pt ros as above otherwise unremarkable Exam - Vital Signs Reviewed Vital Signs: Yes Vital Signs: Vital Signs x48h Temp Pulse Resp BP Pulse Ox 02/17/20 15:53 36.8 C 86 14 147/95 H 95 02/17/20 12:00 36.7 C 86 16 132/80 H 96 - Physical Exam General Appearance: positive: No acute distress, Alert Eyes Bilateral: positive: Normal inspection, PERRL, EOMI ENT: positive: No signs of dehydration Neck: positive: No JVD Respiratory: positive: No respiratory distress Rectal: positive: Non-tender, Other (normal external anal exam. no prolapsing internal hemorrhiods. no blood currently present. no fissure. anal canal fairly small. anoscopy aborted due to recent colonoscopy, no hemorrhoid sympt oms, no further bleeding, and risk of creating a fissure with the size of the anoscope available to me) Neurologic/Psychiatric: positive: Oriented x3 Results - Lab Results Fish Bones: 02/17/20 12:56 02/17/20 05:38 Other Lab Results: Lab Results x24hrs 02/17/20 02/17/20 02/17/20 Range/Units 12:56 05:38 05:38 WBC 6.4 (4.8-10.8) x10^3/uL RBC 3.81 L (4.20-5.40) 10^6/uL Hgb 11.9 L 11.4 L (12.0-16.0) g/dL Hct 36.3 L 35.1 L (37.0-47.0) % MCV 92.1 (81.0-99.0) fL MCH 29.9 (27.0-31.0) pg MCHC 32.5 (32.0-36.0) g/dL RDW 13.0 (12.0-15.0) % Plt Count 236 (130-450) 10^3/uL MPV 10.0 (7.9-10.8) fL Neut # (Auto) 3.4 (1.5-6.6) 10^3/uL Lymph # (Auto) 2.2 (1.5-3.5) 10^3/uL [place] # (Auto) 0.5 (0.0-1.0) 10^3/uL Eos # (Auto) 0.3 (0.0-0.7) 10^3/uL Baso # (Auto) 0.0 (0.0-0.1) 10^3/uL Absolute Nucleated RBC 0.00 x10^3/uL Nucleated RBC % 0.0 /100WBC PT (9.9-12.6) secs INR (0.8-1.2) APTT (24.9-33.3) secs Sodium 140 (135-145) mmol/L Potassium 3.7 (3.5-5.0) mmol/L Chloride 111 (101-111) mmol/L Carbon Dioxide 22 (21-32) mmol/L Anion Gap 7.0 (6-13) BUN 13 (6-20) mg/dL Creatinine 0.6 (0.4-1.0) mg/dL Estimated GFR (MDRD) 98 (>89) Glucose 102 H (70-100) mg/dL Calcium 8.3 L (8.5-10.3) mg/dL Total Bilirubin (0.2-1.0) mg/dL AST (10-42) IU/L ALT (10-60) IU/L Alkaline Phosphatase (42-121) IU/L Total Protein (6.7-8.2) g/dL Albumin (3.2-5.5) g/dL Globulin (2.1-4.2) g/dL Albumin/Globulin Ratio (1.0-2.2) Lipase (22-51) U/L Nasal Adenovirus (PCR) Nasal B. parapertussis DNA (PCR) Nasal Coronavir 229E PCR Nasal Coronavir HKU1 PCR Nasal Coronavir NL63 PCR Nasal Coronavir OC43 PCR Nasal Enterovir/Rhinovir PCR Nasal Influenza B PCR Nasal Influenza A PCR Nasal Parainfluen 1 PCR Nasal Parainfluen 2 PCR Nasal Parainfluen 3 PCR Nasal Parainfluen 4 PCR Nasal RSV (PCR) Nasal B.pertussis DNA PCR Nasal C.pneumoniae (PCR) Librado Human Metapneumo PCR Nasal M.pneumoniae (PCR) Nasal SARS-CoV-2 (PCR) Blood Type Antibody Screen 02/17/20 02/17/20 02/16/20 Range/Units 05:38 00:15 19:45 WBC (4.8-10.8) x10^3/uL RBC (4.20-5.40) 10^6/uL Hgb 11.3 L 12.5 (12.0-16.0) g/dL Hct 35.7 L 38.5 (37.0-47.0) % MCV (81.0-99.0) fL MCH (27.0-31.0) pg MCHC (32.0-36.0) g/dL RDW (12.0-15.0) % Plt Count (130-450) 10^3/uL MPV (7.9-10.8) fL Neut # (Auto) (1.5-6.6) 10^3/uL Lymph # (Auto) (1.5-3.5) 10^3/uL [place] # (Auto) (0.0-1.0) 10^3/uL Eos # (Auto) (0.0-0.7) 10^3/uL Baso # (Auto) (0.0-0.1) 10^3/uL Absolute Nucleated RBC x10^3/uL Nucleated RBC % /100WBC PT (9.9-12.6) secs INR (0.8-1.2) APTT (24.9-33.3) secs Sodium (135-145) mmol/L Potassium (3.5-5.0) mmol/L Chloride (101-111) mmol/L Carbon Dioxide (21-32) mmol/L Anion Gap (6-13) BUN (6-20) mg/dL Creatinine (0.4-1.0) mg/dL Estimated GFR (MDRD) (>89) Glucose (70-100) mg/dL Calcium (8.5-10.3) mg/dL Total Bilirubin (0.2-1.0) mg/dL AST (10-42) IU/L ALT (10-60) IU/L Alkaline Phosphatase (42-121) IU/L Total Protein (6.7-8.2) g/dL Albumin (3.2-5.5) g/dL Globulin (2.1-4.2) g/dL Albumin/Globulin Ratio (1.0-2.2) Lipase (22-51) U/L Nasal Adenovirus (PCR) NOT DETECTED Nasal B. parapertussis DNA (PCR) NOT DETECTED Nasal Coronavir 229E PCR NOT DETECTED Nasal Coronavir HKU1 PCR NOT DETECTED Nasal Coronavir NL63 PCR NOT DETECTED Nasal Coronavir OC43 PCR NOT DETECTED Nasal Enterovir/Rhinovir PCR NOT DETECTED Nasal Influenza B PCR NOT DETECTED Nasal Influenza A PCR NOT DETECTED Nasal Parainfluen 1 PCR NOT DETECTED Nasal Parainfluen 2 PCR NOT DETECTED Nasal Parainfluen 3 PCR NOT DETECTED Nasal Parainfluen 4 PCR NOT DETECTED Nasal RSV (PCR) NOT DETECTED Nasal B.pertussis DNA PCR NOT DETECTED Nasal C.pneumoniae (PCR) NOT DETECTED [place]ibr[place] Human Metapneumo PCR NOT DETECTED Nasal M.pneumoniae (PCR) NOT DETECTED Nasal SARS-CoV-2 (PCR) NOT DETECTED Blood Type Antibody Screen 02/16/20 02/16/20 02/16/20 Range/Units 18:30 16:10 16:10 WBC 7.5 (4.8-10.8) x10^3/uL RBC 4.34 (4.20-5.40) 10^6/uL Hgb 12.7 (12.0-16.0) g/dL Hct 39.3 (37.0-47.0) % MCV 90.6 (81.0-99.0) fL MCH 29.3 (27.0-31.0) pg MCHC 32.3 (32.0-36.0) g/dL RDW 12.7 (12.0-15.0) % Plt Count 247 (130-450) 10^3/uL MPV 9.5 (7.9-10.8) fL Neut # (Auto) (1.5-6.6) 10^3/uL Lymph # (Auto) (1.5-3.5) 10^3/uL [place] # (Auto) (0.0-1.0) 10^3/uL Eos # (Auto) (0.0-0.7) 10^3/uL Baso # (Auto) (0.0-0.1) 10^3/uL Absolute Nucleated RBC x10^3/uL Nucleated RBC % /100WBC PT (9.9-12.6) secs INR (0.8-1.2) APTT (24.9-33.3) secs Sodium 138 (135-145) mmol/L Potassium 3.3 L (3.5-5.0) mmol/L Chloride 104 (101-111) mmol/L Carbon Dioxide 25 (21-32) mmol/L Anion Gap 9.0 (6-13) BUN 21 H (6-20) mg/dL Creatinine 0.7 (0.4-1.0) mg/dL Estimated GFR (MDRD) 82 L (>89) Glucose 141 H (70-100) mg/dL Calcium 9.4 (8.5-10.3) mg/dL Total Bilirubin 0.9 (0.2-1.0) mg/dL AST 26 (10-42) IU/L ALT 24 (10-60) IU/L Alkaline Phosphatase 94 (42-121) IU/L Total Protein 7.6 (6.7-8.2) g/dL Albumin 4.3 (3.2-5.5) g/dL Globulin 3.3 (2.1-4.2) g/dL Albumin/Globulin Ratio 1.3 (1.0-2.2) Lipase 38 (22-51) U/L Nasal Adenovirus (PCR) Nasal B. parapertussis DNA (PCR) Nasal Coronavir 229E PCR Nasal Coronavir HKU1 PCR Nasal Coronavir NL63 PCR Nasal Coronavir OC43 PCR Nasal Enterovir/Rhinovir PCR Nasal Influenza B PCR Nasal Influenza A PCR Nasal Parainfluen 1 PCR Nasal Parainfluen 2 PCR Nasal Parainfluen 3 PCR Nasal Parainfluen 4 PCR Nasal RSV (PCR) Nasal B.pertussis DNA PCR Nasal C.pneumoniae (PCR) [place]ibr[place] Human Metapneumo PCR Nasal M.pneumoniae (PCR) Nasal SARS-CoV-2 (PCR) Blood Type B POSITIVE Antibody Screen NEGATIVE 02/16/20 02/16/20 Range/Units 16:10 16:10 WBC 8.4 (4.8-10.8) x10^3/uL RBC 4.94 (4.20-5.40) 10^6/uL Hgb 14.6 (12.0-16.0) g/dL Hct 44.5 (37.0-47.0) % MCV 90.1 (81.0-99.0) fL MCH 29.6 (27.0-31.0) pg MCHC 32.8 (32.0-36.0) g/dL RDW 12.8 (12.0-15.0) % Plt Count 270 (130-450) 10^3/uL MPV 9.8 (7.9-10.8) fL Neut # (Auto) 6.0 (1.5-6.6) 10^3/uL Lymph # (Auto) 1.6 (1.5-3.5) 10^3/uL [place] # (Auto) 0.5 (0.0-1.0) 10^3/uL Eos # (Auto) 0.2 (0.0-0.7) 10^3/uL Baso # (Auto) 0.0 (0.0-0.1) 10^3/uL Absolute Nucleated RBC 0.00 x10^3/uL Nucleated RBC % 0.0 /100WBC PT 11.6 (9.9-12.6) secs INR 1.0 (0.8-1.2) APTT 32.3 (24.9-33.3) secs Sodium (135-145) mmol/L Potassium (3.5-5.0) mmol/L Chloride (101-111) mmol/L Carbon Dioxide (21-32) mmol/L Anion Gap (6-13) BUN (6-20) mg/dL Creatinine (0.4-1.0) mg/dL Estimated GFR (MDRD) (>89) Glucose (70-100) mg/dL Calcium (8.5-10.3) mg/dL Total Bilirubin (0.2-1.0) mg/dL AST (10-42) IU/L ALT (10-60) IU/L Alkaline Phosphatase (42-121) IU/L Total Protein (6.7-8.2) g/dL Albumin (3.2-5.5) g/dL Globulin (2.1-4.2) g/dL Albumin/Globulin Ratio (1.0-2.2) Lipase (22-51) U/L Nasal Adenovirus (PCR) Nasal B. parapertussis DNA (PCR) Nasal Coronavir 229E PCR Nasal Coronavir HKU1 PCR Nasal Coronavir NL63 PCR Nasal Coronavir OC43 PCR Nasal Enterovir/Rhinovir PCR Nasal Influenza B PCR Nasal Influenza A PCR Nasal Parainfluen 1 PCR Nasal Parainfluen 2 PCR Nasal Parainfluen 3 PCR Nasal Parainfluen 4 PCR Nasal RSV (PCR) Nasal B.pertussis DNA PCR Nasal C.pneumoniae (PCR) Librado Human Metapneumo PCR Nasal M.pneumoniae (PCR) Nasal SARS-CoV-2 (PCR) Blood Type Antibody Screen Sepsis Event Note (H) - Evaluation Current Stage of Sepsis: Ruled out Impression/Plan - Problem List Problem List: Lower gi bleed most certainly due to diffuse moderate diverticulosis. She is up to date on colonoscopy. Clinically she does not have bleeding internal hemorrhoids. She appears to have stopped bleeding. Agree with current care. May advance diet. Follow up surgery in 4.5 years and prn further bleeding/ concerns. Importance of high fiber diet with plenty of fluids discussed. She stated she enjoys nuts. Nuts are ok.
[2020-02-17 18:26] LABS: HGB - HEMOGLOBIN 11.2 g/dL (12.0-16.0)
[2020-02-18 00:21] LABS: HGB - HEMOGLOBIN 10.8 g/dL (12.0-16.0)
[2020-02-18 04:57] LABS: BASOPHILS # (AUTO) 0.1 10^3/uL (0.0-0.1); BASOPHILS % (AUTO) 1.1 %; EOSINOPHILS # (AUTO) 0.3 10^3/uL (0.0-0.7); EOSINOPHILS % (AUTO) 6.3 %; HGB - HEMOGLOBIN 10.5 g/dL (12.0-16.0); LYMPHOCYTES # (AUTO) 2.1 10^3/uL (1.5-3.5); LYMPHOCYTES % (AUTO) 43.7 %; MEAN CORPUSCULAR HEMOGLOBIN 28.9 pg (27.0-31.0); MEAN CORPUSCULAR HGB CONC 31.4 g/dL (32.0-36.0); MEAN PLATELET VOLUME 9.4 fL (7.9-10.8); MONOCYTES # (AUTO) 0.4 10^3/uL (0.0-1.0); MONOCYTES % (AUTO) 7.6 %; NEUTROPHILS % (AUTO) 41.1 %; PLT - PLATELET COUNT 217 10^3/uL (130-450); RED BLOOD COUNT 3.63 10^6/uL (4.20-5.40); RED CELL DISTRIBUTION WIDTH 12.9 % (12.0-15.0); WHITE BLOOD COUNT 4.8 x10^3/uL (4.8-10.8)
[2020-02-18 05:05] LABS: CALCIUM 8.4 mg/dL (8.5-10.3); CREATININE 0.7 mg/dL (0.4-1.0)
[2020-02-18] MEDS: SODIUM CHLORIDE FLUSH 0.9% 10 ML SYRINGE IVP SCH (08:34)
--- NOTE | 2020-02-18 09:44 | PROVIDER PROGRESS NOTE ---
Subjective - Prog Note Date Prog Note Date: 02/18/20 - Subjective Pt reports feeling: Improved (she states she had a small bm this am with very little blood. A 400 ml bm is recorded last night. She denies having a large bloody bm since admission) Objective - Vital Signs/Intake & Output Vital Signs: Vital Signs x48h Temp Pulse Resp BP Pulse Ox 02/18/20 08:03 37.6 C 78 16 147/67 H 97 02/18/20 04:00 36.3 C L 78 16 147/75 H 97 Intake & Output: Intake & Output 02/15/20 02/16/20 02/17/20 02/18/20 23:59 23:59 23:59 23:59 Intake Total 4498.398 9501.333 770 Output Total 350 2100 900 Balance 1031.667 388.333 -130 - Objective General Appearance: positive: No acute distress, Alert Eyes Bilateral: positive: Normal inspection, PERRL Respiratory: positive: No respiratory distress Abdomen: positive: No distention Neurologic/Psychiatric: positive: Oriented x3, Other (very pleasant) - Lab Results Fish Bones: 02/18/20 04:30 02/18/20 04:30 Other Labs: Lab Results x24hrs 02/18/20 02/18/20 02/18/20 Range/Units 04:30 04:30 00:16 WBC 4.8 (4.8-10.8) x10^3/uL RBC 3.63 L (4.20-5.40) 10^6/uL Hgb 10.5 L 10.8 L (12.0-16.0) g/dL Hct 33.4 L 33.3 L (37.0-47.0) % MCV 92.0 (81.0-99.0) fL MCH 28.9 (27.0-31.0) pg MCHC 31.4 L (32.0-36.0) g/dL RDW 12.9 (12.0-15.0) % Plt Count 217 (130-450) 10^3/uL MPV 9.4 (7.9-10.8) fL Neut # (Auto) 2.0 (1.5-6.6) 10^3/uL Lymph # (Auto) 2.1 (1.5-3.5) 10^3/uL Billings # (Auto) 0.4 (0.0-1.0) 10^3/uL Eos # (Auto) 0.3 (0.0-0.7) 10^3/uL Baso # (Auto) 0.1 (0.0-0.1) 10^3/uL Absolute Nucleated RBC 0.00 x10^3/uL Nucleated RBC % 0.0 /100WBC Sodium 140 (135-145) mmol/L Potassium 3.6 (3.5-5.0) mmol/L Chloride 112 H (101-111) mmol/L Carbon Dioxide 23 (21-32) mmol/L Anion Gap 5.0 L (6-13) BUN 12 (6-20) mg/dL Creatinine 0.7 (0.4-1.0) mg/dL Estimated GFR (MDRD) 82 L (>89) Glucose 115 H (70-100) mg/dL Calcium 8.4 L (8.5-10.3) mg/dL 02/17/20 02/17/20 Range/Units 18:09 12:56 WBC (4.8-10.8) x10^3/uL RBC (4.20-5.40) 10^6/uL Hgb 11.2 L 11.9 L (12.0-16.0) g/dL Hct 33.3 L 36.3 L (37.0-47.0) % MCV (81.0-99.0) fL MCH (27.0-31.0) pg MCHC (32.0-36.0) g/dL RDW (12.0-15.0) % Plt Count (130-450) 10^3/uL MPV (7.9-10.8) fL Neut # (Auto) (1.5-6.6) 10^3/uL Lymph # (Auto) (1.5-3.5) 10^3/uL Billings # (Auto) (0.0-1.0) 10^3/uL Eos # (Auto) (0.0-0.7) 10^3/uL Baso # (Auto) (0.0-0.1) 10^3/uL Absolute Nucleated RBC x10^3/uL Nucleated RBC % /100WBC Sodium (135-145) mmol/L Potassium (3.5-5.0) mmol/L Chloride (101-111) mmol/L Carbon Dioxide (21-32) mmol/L Anion Gap (6-13) BUN (6-20) mg/dL Creatinine (0.4-1.0) mg/dL Estimated GFR (MDRD) (>89) Glucose (70-100) mg/dL Calcium (8.5-10.3) mg/dL - Other Results/Comments Other Results/Comments: stable hct/ hgb Sepsis Event Note (H) - Evaluation Current Stage of Sepsis: Ruled out Assessment/Plan - Problem List (2) Lower GI bleed Impression: Doing well after a lower gi bleed with history diffuse diverticulosis. importance of high fiber diet and fiber supplements again discussed. Follow up surgery prn and follow up in 4 years for surveillance colonoscopy
[2020-02-18 10:27] LABS: HGB - HEMOGLOBIN 11.7 g/dL (12.0-16.0)
[2020-02-18 11:21] VITALS: BP 145/78
--- NOTE | 2020-02-18 11:57 | Discharge Plan ---
Discharge Plan Problem Reviewed?: Yes Disposition: Home, Self Care Condition: Stable Diet: Soft Activity Restrictions: Activity as Tolerated Shower Restrictions: No (fall precaution) Instruction Topics: Bleeding Gastrointestinal, Bleeding Rectal, ED Hematochezia Stable, ED Diverticulosis Health Concerns: GI bleed with hx of diverticulosis Plan of Treatment: Your HGB is stable and slight increased now. you has been no GI bleeding from yesterday. you has hx of diffuse diverticulosis. you were consulted with GI surgeon. Surgeon released you, and he suggested importance of high fiber diet and fiber supplements to you. You may Follow up surgery as needed and follow up in 4 years for surveillance colonoscopy. Your baby aspirin is in the hold for GI bleeding now. You may follow-up with your PCP and hand singer as outpatient. Care Goals: stabilization and improvement/healing of your medical conditions Assessment: discussed the care plan with you, you understood and agreed. Additional Instructions or Follow Up instructions: You may follow-up with your PCP in 1-2 weeks and hand singer as outpatient. Shoulder your symptoms return or worsen, you may present to ER or call 911 for help No Smoking: If you smoke, Please STOP! Call for help. Follow-up with: Sravan Reyes DO [Primary Care Provider] -
--- NOTE | 2020-02-18 12:12 | DISCHARGE SUMMARY ---
"Discharge Summary Admit Date: 02/16/20 Discharge Date: 02/18/20 Discharging Provider: Romero Canchola Primary Care Provider: Dr. India Reyes Condition at Discharge: Stable Discharge Disposition: 01 Home, Self Care Discharge Facility Name: home - DIAGNOSES Discharge Diagnoses with Status of Each Condition: (1) Hematochezia Patient has no more GI bleed, hemoglobin slightly elevated. Patient really want to go home. GI surgeon was consulted for patient and he also released the patient to home. Home medication baby aspirin is hold for healing. Surgeon believe patient's GI bleed might drive from patient's chronic diverticulosis. Advised patient follow-up with PCP in 1-2 week, and followup with secretary to the vice president as out-pt if clinic continue indicated, Follow-up with general surgeon for next Colonoscopy. Advised patient closely monitor if she still has GI bleeding, if it happens again, advise pt call 911 or come back ER for further evaluation (2) Hypertension Stable, She would prefer not to take any medication at this time. Follow-up in the outpatient with her PCP for management. - HPI History of Present Illness: refer from Dr. Riuz's HPI on 02/16/2020 74-year old white female who presented in February 2018 with bright red blood per rectum and was subsequently found to have a large tubulovillous adenoma with high-grade dysplasia as well as extensive diverticulosis now presents with another episode of bright red blood per rectum. Is been going on all day long. She has not had any abdominal pain. No rectal pain. She has had no change in bowel habits until today. There is been no weight loss. She denies fever, chills, sweats. She did have a follow-up colonoscopy in August 2018 with no findings. she was evaluated in the emergency room by Dr. Valiente. Hemoglobin has dropped slightly and she has gone from 14.6 g of hemoglobin to 12.7 g of hem oglobin since being in the emergency room. She is mildly tachycardic at 105- 119. She is hypertensive [place] 171-199 [place] [address]. Abdomen and pelvis CT shows bowel loops that are normal wall caliber and thickness. No free fluid or air. No retroperitoneal or mesenteric adenopathy. Essentially there are no acute findings. Our service is being asked to place the patient in observation status for follow-up of possible GI bleed. Dr. Larson, general surgery, has been notified. If the patient's hemoglobin continues to drop she may be able to get a colonoscopy tomorrow. However if the patient's hemoglobin is stable, she may be able to be discharged home and followed in the outpatient setting. - CONSULTS | PROCEDURES Consultations: DR. Domínguez Procedures: no procedure - HOSPITAL COURSE Hospital Course: Patient was admitted for fresh bloody GI bleed. Patient has a history of diverticulosis, patient had colonoscopy about 2 years ago which was unremarkable. After patient had a bowel rest, intravenous IV fluids, H&H monitor patient hemoglobin, Patient has no more GI bleeding, her hemoglobin is a slightly elevated. Patient was consulted by general surgeon, general surgeon has no procedure for patient and released patient to home. Patient is discharged with hemodynamically stable condition - ALLERGIES Allergies/Adverse Reactions: Allergies Allergy/AdvReac Type Severity Reaction Status Date / Time hydrochlorothiazide Allergy Rash Verified 02/16/20 15:51 - MEDICATIONS Home Medications: Ambulatory Orders Medication Instructions Recorded Confirmed Garlic 500 mg PO DAILY 03/15/18 02/16/20 Multivitamin [Theragran] 1 each PO DAILY 03/15/18 02/16/20 - PHYSICAL EXAM AT DISCHARGE General Appearance: positive: No acute distress, Alert. negative: Lethargic Eyes Bilateral: positive: Normal inspection, PERRL, No lid inflammation ENT: positive: ENT inspection nml, No signs of dehydration. negative: Purulent nasal drainage Neck: positive: Nml inspection, Thyroid nml, Trachea midline. negative: Thyromegaly, Tracheal deviation Respiratory: positive: Chest non-tender, No respiratory distress, Breath sounds nml. negative: Wheezes, Rales, Rhonchi Cardiovascular: positive: Regular rate & rhythm, No murmur. negative: Tachycardia, Bradycardia, Systolic murmur, Diastolic murmur Peripheral Pulses: positive: 2+ Abdomen: positive: Non-tender, Nml bowel sounds, No distention. negative: Tenderness, Guarding, Rebound Back: positive: Nml inspection. negative: CVA tenderness (R), CVA tenderness (L) Skin: positive: Color nml, No rash, Warm. negative: Cyanosis, Diaphoresis, Pallor Extremities: positive: Non-tender, Full ROM, Nml appearance. negative: Pedal edema, Calf tenderness Neurologic/Psychiatric: positive: Oriented x3, Motor nml, Sensation nml, Mood/affect nml. negative: Weakness, Sensory loss, Facial droop, Slurred/abnml speech, Depressed mood/affect - LABS Result Diagrams: 02/18/20 10:19 02/18/20 04:30 - SEPSIS Current Stage of Sepsis: Ruled out - FOLLOW UP Follow Up: Your HGB is stable and slight increased now. you has been no GI bleeding from yesterday. you has hx of diffuse diverticulosis. you were consulted with GI surgeon. Surgeon released you, and he suggested importance of high fiber diet and fiber supplements to you. You may Follow up surgery as needed and follow up in 4 years for surveillance colonoscopy. Your baby aspirin is in the hold for GI bleeding now. You may follow-up with your PCP and secretary to the vice president as outpatient. You may follow-up with your PCP in 1-2 weeks and secretary to the vice president as outpatient . Shoulder your symptoms return or worsen, you may present to ER or call 911 for help - TIME SPENT Time Spent in Discharge (Minutes): 30"
== END 2020-02-18 13:15 | disposition home or self-care (01) ==
LOC: ED 15:34 → MS2 20:05
PROVIDERS: ADMIT Specialist; ATTEND Nurse Practitioner Gerontology
DX: K92.1 Melena (principal); I10 Essential (primary) hypertension; E87.6 Hypokalemia; K21.9 Gastro-esophageal reflux disease without esophagitis; Z87.19 Personal history of other diseases of the digestive system; Z79.82 Long term (current) use of aspirin; Z79.899 Other long term (current) drug therapy; Z80.0 Family history of malignant neoplasm of digestive organs; Z86.010 Personal history of colon polyps
CPT/HCPCS: 36415; 74177; 80048; 80053; 83690; 85014; 85018; 85025; 85027; 85610; 85730; 86850; 86900; 86901; 87631; 96361; 96365; 96366; 96367; 99284; 99285; A9270; G0378; J7120; Q9967; 0202U

== ENCOUNTER 2020-05-13 08:00 | Outpatient (CLI) | payer MEDICARE ==
[2020-05-13 11:40] LABS: BASOPHILS # (AUTO) 0.1 10^3/uL (0.0-0.1); BASOPHILS % (AUTO) 1.5 %; EOSINOPHILS # (AUTO) 0.3 10^3/uL (0.0-0.7); EOSINOPHILS % (AUTO) 5.3 %; HCT - HEMATOCRIT 47.7 % (37.0-47.0); HGB - HEMOGLOBIN 15.3 g/dL (12.0-16.0); LYMPHOCYTES # (AUTO) 1.7 10^3/uL (1.5-3.5); LYMPHOCYTES % (AUTO) 36.8 %; MEAN CORPUSCULAR HEMOGLOBIN 28.8 pg (27.0-31.0); MEAN CORPUSCULAR HGB CONC 32.1 g/dL (32.0-36.0); MEAN CORPUSCULAR VOLUME 89.7 fL (81.0-99.0); MEAN PLATELET VOLUME 10.1 fL (7.9-10.8); MONOCYTES # (AUTO) 0.3 10^3/uL (0.0-1.0); MONOCYTES % (AUTO) 6.1 %; NEUTROPHILS # (AUTO) 2.4 10^3/uL (1.5-6.6); NEUTROPHILS % (AUTO) 50.1 %; PLT - PLATELET COUNT 285 10^3/uL (130-450); RED BLOOD COUNT 5.32 10^6/uL (4.20-5.40); RED CELL DISTRIBUTION WIDTH 12.2 % (12.0-15.0); WHITE BLOOD COUNT 4.7 x10^3/uL (4.8-10.8)
[2020-05-13 12:00] LABS: ALBUMIN 4.4 g/dL (3.2-5.5); ALBUMIN/GLOBULIN RATIO 1.3 (1.0-2.2); BILIRUBIN,TOTAL 0.9 mg/dL (0.2-1.0); CALCIUM 9.7 mg/dL (8.5-10.3); CREATININE 0.8 mg/dL (0.4-1.0); POTASSIUM 3.7 mmol/L (3.5-5.0); TOTAL PROTEIN 7.9 g/dL (6.7-8.2)
[2020-05-13 12:14] LABS: THYROID STIMULATING HORMONE 0.46 uIU/mL (0.34-5.60)
== END 2020-05-13 23:59 | disposition home or self-care (01) ==
LOC: LAB.WCP 08:00
PROVIDERS: ATTEND Family Medicine
DX: K92.1 Melena (principal); R94.6 Abnormal results of thyroid function studies
CPT/HCPCS: 36415; 80053; 84443; 85025